=== PATIENT | male | born 1970 | race Caucasian/White ===

== ENCOUNTER → 2017-12-09 | Outpatient (CLI) | payer OTHER ==
[~2017-12-09] MED LIST: ALEVE220 MG PO; AMITRIPTYLINE H10 M3 PO; DEMEROL100 MG PO; ENDOCET 7.5-321 EACH; FLEXERIL; IBUPROFEN 600600 M1 PO; IBUPROFEN 800800 M1 PO; IMITREX 50 MG T50 MG PO; LIORESAL 10 MG10 MG PO; LOPRESSOR50 PO; MAXALT MLT ODT 55 M1 PO; MELOXICAM7.5 MG PO; METHADONE HCL 110 M1 PO; NAPROSYN500 MG; NAPROSYN500 MG PO; NORCO 10-325 T1 EACH PO; ONDANSETRON HCL4 M2 PO; OPANA ER15 M1 PO; PERCOCET 10-321 EACH PO; PREDNISONE 20 M20 M1 PO; PREVACID15 MG; ROXICODONE15 MG PO; ROXICODONE30 M1 PO; SKELAXIN 800 M800 M1 PO; VERAPAMIL ER120 MG PO; VOLTAREN GEL 1100 G2 TOP; ZOFRAN4 MG PO
--- NOTE | 2017-12-11 09:33 | PAINCON ---
[address] [address] PAIN MANAGEMENT CONSULTATION Name: PURNIMA QUEVEDO Room: [facility]#: [id number] Admission: 12/09/17 Attend Phys: Nan Martinez Discharge: Date of : 72 Report #: [id number] THIS REPORT FOR: //name// CC: Rashid Osorio DATE OF SERVICE: 12/09/2017 The patient is a very pleasant 47-year-old gentleman well known to the [facility], being treated for cervical radiculopathy, cervical spondylosis, chronic headaches, history of lumbar decompressive laminectomy requiring high-risk complex medication management. Last seen in the Pain Clinic on 10/21/2017. We had weaned down for much higher dose of opiates, he has been stable at methadone 10 mg t.i.d. with oxycodone 15 mg 2-3 a day, limit 75 tablets for 30 days for some time now. Equates to roughly 180 mEq of morphine. We realized that this is a supratherapeutic dose though it is significantly lower than prior medications, which he came to the clinic on. He was seen for a prolonged visit today from 8:10 to 8:35. Greater than 50% of this 25-minute visit was spent counseling the patient. The patient had been increasing his activity, was getting up to 40 minutes exercise on the treadmill, though was noting with this he was getting paresthesia into his thumbs, right greater than left with paresthesia actually in his arms as well. Ongoing cervical radicular symptoms started to become more problematic. He has been doing some yoga for low back pain, though this too has exacerbated some back pain. 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 Alert and oriented to person, place and time, judged to be a reasonable historian, 6 feet 4 inches, 279 pounds, BMI is modestly elevated at 34 kg/m2. Blood pressure is a little bit elevated today 159/90, pulse 82, respirations 16. Cervical range of motion is limited with positive Lhermitte's radiating to the left greater than right arm. Classically, he has right greater than left radicular symptoms. Upper extremity strength is pretty robust. The patient feels he may have a slight decrease in strength, right greater than left. Again, paresthesia into the right and left thumbs. Negative Tinel's. Deep tendon reflexes are diminished, but symmetric. Reviewed the MRI from 01/14/2017, does note large left central disk extrusion at C3-C4, left central disk at C5-C6 and bilateral neural foraminal narrowing C4-C5 and C5-C6. Rises from the chair using armrest. Diffuse tenderness across the low back, well-healed surgical scar compatible with prior back surgery at 2009, again 2013. Complicated surgery with dural leak [place] [address] PAIN MANAGEMENT CONSULTATION Name: PURNIMA QUEVEDO Room: [facility]#: [id number] Admission: 12/09/17 Attend Phys: Nan Martinez Discharge: Date of : 72 Report #: [id number] We reviewed the fact that opiate medications are being used to provide analgesia adequate to support activities of daily living, not attempting to achieve a specific pain score on the 0-10 Visual Analog Scale. The current opiate medications are providing sufficient analgesia to allow the patient to participate in activities of daily living. The patient is not exhibiting any aberrant behavior suggestive of drug diversion. The patient is not having any adverse reactions to medications. The patient is not suffering from daytime somnolence or mental acuity changes. The patient is managing opiate-induced constipation with appropriate johm-ahn-hpnpphg agents and dietary considerations. The patient was counseled on concern for caution with operating a motor vehicle while using opiate medications. A physical exam was performed and the patient's functional status was evaluated. All patients with back pain were advised against the bed rest greater than 4 days and were advised to return to normal activities. Pain score assessment was noted and the treatment plan was reviewed with the patient. All current medications, both prescribed and OTC were reviewed and reconciled on the electronic medical record. Tobacco screening was accomplished and smoking cessation was advised when indicated. BMI was noted and diet/exercise modification was recommended for all patients following outside normal parameters. I reviewed with the patient today their responsibilities to safeguard prescription medications, reviewed their responsibility to utilize medications only as prescribed by the physician. They are to seek and receive pain medications only from 1 physician group ( [facility]). They are to use 1 pharmacy and keep the clinic informed if they change pharmacies. Their responsibilities include making followup visits in a timely fashion and to avoid abrupt discontinuation of medication usage. Their responsibilities further include bringing their medications (bottles from the pharmacy with residual pills) to the visit for possible confirmation of pill counts and the patient understands it is their responsibility to submit to random drug screens to ensure both that the medications prescribed are present, and that no other controlled substances are present. All prescriptions provided today were generated electronically. We reviewed the patient's opiate consent to treat contract and signed a new one today. We try and do this annually. Buccal drug swab was accomplished today, no aberrant behavior suggestive for drug diversion, simply complying with opiate consent to treat contract. We will seek authorization for cervical epidural injection under fluoroscopy to help with acute exacerbation of cervical radicular symptoms at next visit. [facility] [address] [facility] [place] [address] PAIN MANAGEMENT CONSULTATION Name: PURNIMA QUEVEDO Room: [facility]#: [id number] Admission: 12/09/17 Attend Phys: Nan Martinez Discharge: Date of : 72 Report #: [id number] Discharged in good and stable condition after 25-minute visit, greater than 50% of time spent counseling the patient. <ELECTRONICALLY SIGNED> By: Kirby Osorio DO 12/11/17 0933 [id number] Osorio DO /nt
== END ==
LOC: M.PC 01:27
DX: M54.12 Radiculopathy, cervical region (principal); M47.892 Other spondylosis, cervical region; R51 Headache; Z98.890 Other specified postprocedural states; Z79.899 Other long term (current) drug therapy

== ENCOUNTER → 2018-01-06 | Outpatient (CLI) | payer OTHER ==
--- NOTE | 2018-01-13 07:32 | PAINCON ---
[facility] [address] [place] [address] PAIN MANAGEMENT CONSULTATION Name: SAEPURNIMA Room: [facility]#: [id number] Admission: 01/06/18 Attend Phys: Nan Martinez Discharge: Date of : 72 Report #: [id number] THIS REPORT FOR: //name// CC: Rashid Osorio The patient is a 47-year-old gentleman typically treated for cervical radiculopathy, cervical spondylosis, chronic headaches, status post lumbar decompressive laminectomy, requiring high risk complex medication management. Last seen in the pain clinic on 12/09/2017. The patient was continued on baseline medication. We sought authorization for cervical epidural injection under fluoroscopy. He returns to pain clinic today. He notes the neck pain is a little bit improved, but still has ongoing cervical radicular symptoms. He is also concerningly noting some increase in lumbar radicular symptoms with some paresthesia in his anterior thigh, subjective weakness. To his credit, he has been walking more on the treadmill in the gym. We talked about doing warmup exercises prior to this. PHYSICAL EXAMINATION: Does show a modestly antalgic gait. Vital signs stable, blood pressure 144/89, pulse 96, respirations 18. BMI modestly elevated as noted on EMR . Positive straight leg raise bilaterally. Hip flexion is modestly diminished, although lower extremity extension, flexion, dorsiflexion and plantarflexion are all symmetric. Cervical range of motion is modestly limited with positive Lhermitte's. Ongoing cervical radicular symptoms and headaches remain problematic. We reviewed the fact that opiate medications are being used to provide analgesia adequate to support activities of daily living, not attempting to achieve a specific pain score on the 0-10 Visual Analog Scale. The current opiate medications are providing sufficient analgesia to allow the patient to participate in activities of daily living. The patient is not exhibiting any aberrant behavior suggestive of drug diversion. The patient is not having any adverse reactions to medications. The patient is not suffering from daytime somnolence or mental acuity changes. The patient is managing opiate-induced constipation with appropriate wthr-ibo-vykclch agents and dietary considerations. The patient was counseled on concern for caution with operating a motor vehicle while using opiate medications. A physical exam was performed and the patient's functional status was evaluated. All patients with back pain were advised against the bed rest greater than 4 days and were advised to return to normal activities. Pain score assessment was noted and the treatment plan was reviewed with the patient. All current medications, both prescribed and OTC were reviewed and reconciled on the electronic medical record. Tobacco screening [place] [address] PAIN MANAGEMENT CONSULTATION Name: PURNIMA QUEVEDO [id number] Admission: 01/06/18 Attend Phys: Nan Martinez Discharge: Date of : 72 Report #: [id number] cessation was advised when indicated. BMI was noted and diet/exercise modification was recommended for all patients following outside normal parameters. I reviewed with the patient today their responsibilities to safeguard prescription medications, reviewed their responsibility to utilize medications only as prescribed by the physician. They are to seek and receive pain medications only from 1 physician group ( [facility]). They are to use 1 pharmacy and keep the clinic informed if they change pharmacies. Their responsibilities include making followup visits in a timely fashion and to avoid abrupt discontinuation of medication usage. Their responsibilities further include bringing their medications (bottles from the pharmacy with residual pills) to the visit for possible confirmation of pill counts and the patient understands it is their responsibility to submit to random drug screens to ensure both that the medications prescribed are present, and that no other controlled substances are present. All prescriptions provided today were generated electronically. ASSESSMENT: Symptomatic cervical radiculopathy by clinical exam and history, chronic headaches, chronic pain syndrome, neuropathic pain requiring complex medication management, lumbar radiculopathy status post decompressive laminectomy. RECOMMENDATIONS: 1. Continue methadone 10 mg t.i.d., oxycodone 15 mg b.i.d. to t.i.d., baclofen 10 mg at bedtime and amitriptyline 10 mg at bedtime. 2. Cervical epidural injection under fluoroscopy today. 3. The patient given samples of Movantik for opiate-induced constipation. 4. Follow up in 4 weeks for reevaluation. May need MRI of the lumbar spine if lumbar radicular symptoms continue problematic. ASSESSMENT: Symptomatic cervical radiculopathy. PROCEDURE: Cervical epidural injection under fluoroscopy. PROCEDURE NOTE: After written and informed consent was obtained including risk of dural puncture, spinal cord trauma, paralysis and increased pain, the patient was taken to the fluoroscopy suite and placed in the prone position, with appropriate abdominal bolstering, neck was flexed, palms under the thighs. Skin was prepped with ChloraPrep. Sterile draping was applied. Skin wheal with 1% Xylocaine was raised. A 22-gauge 3-1/2 inch epidural Tuohy needle was placed via a midline approach at the C7-T1 interspace, advanced under biplanar fluoroscopy using continuous loss of resistance. With appropriate loss of resistance at the expected depth on lateral view, the glass loss of resistance syringe was disconnected. A low volume extension tubing was connected to the needle and a 5 mL syringe. Negative aspiration for cerebrospinal fluid or blood [address] [address] PAIN MANAGEMENT CONSULTATION Name: SAEPURNIMA Room: [facility]#: [id number] Admission: 01/06/18 Attend Phys: Nan Martinez Discharge: Date of : 72 Report #: [id number] was noted. A 1 mL of Omnipaque was injected which showed spread within the epidural space on biplanar fluoroscopy. This was followed with 80 mg of triamcinolone plus 1 mL of 1.5% preservative Xylocaine. Needle was withdrawn to the interspinous ligament, 0.5 mL of Xylocaine was used to flush the needle. The needle was then completely withdrawn. The area was cleansed. Band-Aid was applied. The patient was allowed to move off the procedure table and ambulated to the recovery room, monitored for an appropriate period of time, discharged in good and stable condition. <ELECTRONICALLY SIGNED> By: Kirby Osorio DO 01/13/18 0732 [id number] Osorio DO /nt
== END | disposition home or self-care (01) ==
LOC: M.PC 01:29
DX: M54.12 Radiculopathy, cervical region (principal); M54.16 Radiculopathy, lumbar region; G89.4 Chronic pain syndrome; G44.89 Other headache syndrome; Z98.890 Other specified postprocedural states; Z79.891 Long term (current) use of opiate analgesic

== ENCOUNTER → 2018-02-03 | Outpatient (CLI) | payer OTHER ==
--- NOTE | 2018-02-04 09:41 | PAINCON ---
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 The patient came to us on much higher dose of opiates. He has been very stable on methadone 10 mg t.i.d. and oxycodone 15 mg 2 or 3 a day. We did a cervical epidural injection in the last visit, which did decrease frequency and intensity of headaches. He returns to the pain clinic today, he has lost 7 pounds to his credit, he has continued to do treadmill work daily. Notes frequency and intensity of headaches is diminished, has headaches less than 15 days a month. Does have some increasing pain in the mid right back. He does have palpable spasm in the right thoracic paravertebral muscles from about T7-T10. Lower extremity strength is preserved. We reviewed the fact that opiate medications are being used to provide analgesia adequate to support activities of daily living, not attempting to achieve a specific pain score on the 0-10 Visual Analog Scale. The current opiate medications are providing sufficient analgesia to allow the patient to participate in activities of daily living. The patient is not exhibiting any aberrant behavior suggestive of drug diversion. The patient is not having any adverse reactions to medications. The patient is not suffering from daytime somnolence or mental acuity changes. The patient is managing opiate-induced constipation with appropriate zvos-roo-uyancsi agents and dietary considerations. The patient was counseled on concern for caution with operating a motor vehicle while using opiate medications. A physical exam was performed and the patient's functional status was evaluated. All patients with back pain were advised against the bed rest greater than 4 days and were advised to return to normal activities. Pain score assessment was noted and the treatment plan was reviewed with the patient. All current medications, both prescribed and OTC were reviewed and reconciled on the electronic medical record. Tobacco screening was accomplished and smoking cessation was advised when indicated. BMI was noted and diet/exercise modification was recommended for all patients following outside normal parameters. I reviewed with the patient today their responsibilities to safeguard prescription medications, reviewed their responsibility to utilize medications only as prescribed by the physician. They are [place] [address] PAIN MANAGEMENT CONSULTATION Name: PURNIMA QUEVEDO [id number] Admission: 02/03/18 Attend Phys: Nan Martinez Discharge: Date of : 72 Report #: [id number] medications only from 1 physician group ( [facility]). They are to use 1 pharmacy and keep the clinic informed if they change pharmacies. Their responsibilities include making followup visits in a timely fashion and to avoid abrupt discontinuation of medication usage. Their responsibilities further include bringing their medications (bottles from the pharmacy with residual pills) to the visit for possible confirmation of pill counts and the patient understands it is their responsibility to submit to random drug screens to ensure both that the medications prescribed are present, and that no other controlled substances are present. All prescriptions provided today were generated electronically. 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 I talked about possible increase in pain with this though in truth the patient is getting in better shape. He has been working on core strengthening. I do not think that he will have a significant change in functional status with this. He understands he has some ongoing chronic daily pain and is okay with this. Hopefully, we will simply use idsj-hyb-hjlbaem NSAID to help with any increased pain from muscle related issues. To this end, I did provide a prescription for Voltaren gel and suggested to have his rub into the muscle spasm area in the right midback. ASSESSMENT: Symptomatic cervical radiculopathy, cervical spondylosis, chronic headaches and lumbar radiculopathy, status post decompressive laminectomy with new diagnosis of right thoracic paravertebral muscle spasm and myofascial pain. RECOMMENDATIONS: 1. Continue methadone 10 mg t.i.d., oxycodone 15 mg 2-3 a day, limit 75 tablets. We talked about trying to use a half a tablet if pain is a little less severe. 2. We will trial Voltaren gel topically. Follow up in 30 days for reevaluation. <ELECTRONICALLY SIGNED> By: Kirby Osorio DO 02/04/18 0941 [id number] Osorio DO /nt
== END ==
LOC: M.PC 01:44
DX: M47.22 Other spondylosis with radiculopathy, cervical region (principal)

== ENCOUNTER → 2018-02-24 | Outpatient (CLI) | payer OTHER ==
--- NOTE | 2018-03-01 08:02 | PAINCON ---
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 Last seen in the pain clinic 02/03/2018. Continued on methadone 10 mg t.i.d., oxycodone 15 mg 1 tablet 2-3 times a day. Again, the patient's care was taken over by myself in 09/2016. At that time, he was on fairly high dose opiates including oxycodone 30 mg up to 6 a day. We had rotated to various medications and weaned down to current opiate load. The patient notes medications are generally helpful for chronic pain including headaches and axial back pain. He notes the headaches are much less frequent than they were years ago. He had been in the ER 6-8 times a year prior to my management. His last headache requiring him to go to the ER was in the fall of 2016, now some 8 months ago. Notes having some ongoing low back pain with leg aching. To his credit, he has been increasing work on the treadmill 30-40 minutes a day with stationary bike 5-10 minutes along with some stretching. He thinks baclofen 10 mg b.i.d. is helpful, in fact he is using it a little more frequently for spasm. Notes his subjective pain score is 7 on VAS. PHYSICAL EXAMINATION: Shows 6-foot 4-inch, 270-pound gentleman, BMI is 32 kilograms per meter squared. Blood pressure 152/93, pulse 88, respirations 16. Alert and oriented to person, place and time, judged to be a reasonable historian. Cervical range of motion is relatively full. Some diffuse tenderness in the upper back, trapezius and thoracic paravertebral muscles. No discrete trigger point is noted. Lumbar flexion is modestly limited. Gait is tandem. Lower extremity strength is preserved. Straight leg raise is nominally positive on the left. ASSESSMENT: Lumbar radiculopathy status post decompressive laminectomy with some left lumbar radicular pain, chronic headaches, cervical radiculopathy, myofascial pain component requiring complex medication management. RECOMMENDATIONS: I have discussed with the patient today, we would like to continue current medication unchanged, methadone 10 mg t.i.d., oxycodone 15 mg 1 tablet 2-3 times a day, Voltaren gel topically. We will increase baclofen from 10 mg b.i.d. up to q.i.d. Discharged in good stable condition. Follow up in 1 [place] [address] PAIN MANAGEMENT CONSULTATION Name: PURNIMA QUEVEDO [id number] Admission: 02/24/18 Attend Phys: Nan Martinez Discharge: Date of : 72 Report #: [id number] Last random drug screen 12/09/2017, positive for prescribed medications including methadone and amitriptyline. Negative for oxycodone, though he does take this on a nondaily basis. We may check a random buccal swab at next visit, no aberrant behavior suggestive of drug diversion, simply complying with our opiate consent to treat contract. <ELECTRONICALLY SIGNED> By: Kirby Osorio DO 03/01/18 0802 1514 [id number] Osorio DO /nt
== END ==
LOC: M.PC 00:33
DX: M54.16 Radiculopathy, lumbar region (principal); M54.12 Radiculopathy, cervical region; M79.1 Myalgia; R51 Headache

== ENCOUNTER → 2018-03-24 | Outpatient (CLI) | payer OTHER ==
--- NOTE | 2018-03-29 08:35 | PAINCON ---
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 He had been on a very high dose opiates. We weaned down to methadone 10 mg t.i.d. with oxycodone 15 mg 1 tablet 2-3 times a day. Baclofen 10 mg up to 4 times a day as a co-analgesic and Voltaren gel topically. We progressed to perform a cervical epidural injection on 01/06/2018 with overall improvement of radicular symptoms. He returns to pain clinic today noting he is having increasing stress and headaches. Also, notes significant axial back pain with tenderness over the bilateral SI joints. He prior had a lumbar spinal surgery in 2009 and again in 2013 with incremental improvement of pain. PHYSICAL EXAMINATION: Shows a 6 feet 4 inches, 271 pound gentleman, BMI is 33 kilograms per meter squared, blood pressure is 142/82, pulse 89, respirations 16. Subjective pain score is 7 on a VAS. Cervical range of motion is modestly limited, tender in the superior cervical facets, had a headache this morning. He has had decreased activity somewhat secondary to pain. States that symptoms have been worse in the past 3 weeks, but thinks that he might be getting better from the headache standpoint, ongoing axial back pain exacerbated with standing, bending and leaning forward. Physical exam again notes upper extremity strength is preserved. Rises from chair using armrest. Diffuse tenderness over the SI joints. Well-healed surgical scar compatible with lumbar decompressive laminectomy. Lumbar flexion is limited. Lower extremity strength is preserved. Straight leg raise is negative. We reviewed the fact that opiate medications are being used to provide analgesia adequate to support activities of daily living, not attempting to achieve a specific pain score on the 0-10 Visual Analog Scale. The current opiate medications are providing sufficient analgesia to allow the patient to participate in activities of daily living. The patient is not exhibiting any aberrant behavior suggestive of drug diversion. The patient is not having any adverse reactions to medications. The patient is not suffering from daytime somnolence or mental acuity changes. The patient is managing opiate-induced constipation with appropriate nobm-rzn-cgldvcy agents and dietary considerations. The patient was counseled on concern for caution with operating a motor vehicle while using opiate medications. A physical exam was performed and the patient's functional status was evaluated. All patients with back pain were advised against the bed rest greater than 4 days and were advised to return to normal activities. Pain score assessment was noted and the treatment plan was reviewed with [place] [address] PAIN MANAGEMENT CONSULTATION Name: PURNIMA QUEVEDO [id number] Admission: 03/24/18 Attend Phys: Nan Martinez Discharge: Date of : 72 Report #: [id number] medications, both prescribed and OTC were reviewed and reconciled on the electronic medical record. Tobacco screening was accomplished and smoking cessation was advised when indicated. BMI was noted and diet/exercise modification was recommended for all patients following outside normal parameters. I reviewed with the patient today their responsibilities to safeguard prescription medications, reviewed their responsibility to utilize medications only as prescribed by the physician. They are to seek and receive pain medications only from 1 physician group ( [facility]). They are to use 1 pharmacy and keep the clinic informed if they change pharmacies. Their responsibilities include making followup visits in a timely fashion and to avoid abrupt discontinuation of medication usage. Their responsibilities further include bringing their medications (bottles from the pharmacy with residual pills) to the visit for possible confirmation of pill counts and the patient understands it is their responsibility to submit to random drug screens to ensure both that the medications prescribed are present, and that no other controlled substances are present. All prescriptions provided today were generated electronically. ASSESSMENT: Chronic headaches, cervical radiculopathy requiring complex medication management in a gentleman status post lumbar decompressive laminectomy with component of SI mediated pain. RECOMMENDATIONS: We discussed need to continue opiate wean. We elected to continue methadone 10 mg t.i.d. We will decrease oxycodone from 15 mg tablet to Percocet 10/325, limit 3 tablets a day. Continue baclofen and amitriptyline at bedtime unchanged. We will seek authorization for bilateral SI joint injections at next visit. I did discuss with the patient today that I will be leaving practice. We need to find another pain clinic physician in his network to continue managing pain concerns and medication management. Hopefully, we can find a provider in the [facility] group. <ELECTRONICALLY SIGNED> By: Kirby Osorio DO 03/29/18 0835 [id number] Osorio DO /nt
== END ==
LOC: M.PC 02:58
DX: M96.1 Postlaminectomy syndrome, not elsewhere classified (principal); G89.29 Other chronic pain; R51 Headache; M54.12 Radiculopathy, cervical region; Z79.899 Other long term (current) drug therapy

== ENCOUNTER → 2018-04-21 | Outpatient (CLI) | payer OTHER ==
--- NOTE | 2018-04-22 08:06 | PAINCON ---
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 Comorbidity notes history of lumbar decompressive laminectomy and SI mediated pain. I started treating patient on 09/2016. At that time, he was using Opana ER 15 mg b.i.d. and oxycodone 30 mg typically up to 3 a day, equivalent to roughly 225 mg morphine equivalent a day. Currently patient is utilizing methadone 10 mg t.i.d. and we decreased oxycodone 15 to Percocet 10/325 three a day. Currently taking roughly equivalent of 165 mg morphine a day. He returns to pain clinic today. We had a prolonged visit, greater than 30 minutes was spent with the patient, 50% of time was spent counseling the patient. The patient notes he has some diffuse pain in the low back, which is fairly new. He feels a pressure sensation when he stands for any period of time. Typically, he said if he would lie flat on a hard surface, pain would resolve, though this is becoming more and more problematic. Otherwise, his primary pain is in the SI area. Pain is exacerbated with pushing, lifting and bending forward. Classic SI mediated pain. Pain does NOT radiate into the legs. No signs of radiculopathy nor myelopathy noted at this time. PHYSICAL EXAMINATION: Shows 6 feet 4 inches, 270 pounds gentleman, BMI 32 kg/m2. Blood pressure 137/90, pulse 89, respirations 18. Rises from chair using armrest. Gait is generally tandem. Lumbar flexion is limited. Positive tenderness over the SI joints. Positive FLAVIO test bilaterally. Positive Gaenslen test bilaterally. Positive pelvic distraction. Lower extremity strength is generally preserved. Straight leg raise is negative at this time. Well-healed surgical scar compatible with prior decompressive laminectomy in the distant past. Subjective pain score 6 on a VAS. We reviewed the fact that opiate medications are being used to provide analgesia adequate to support activities of daily living, not attempting to achieve a specific pain score on the 0-10 Visual Analog Scale. The current opiate medications are providing sufficient analgesia [place] [address] PAIN MANAGEMENT CONSULTATION Name: PURNIMA QUEVEDO [id number] Admission: 04/21/18 Attend Phys: Nan Martinez Discharge: Date of : 72 Report #: [id number] participate in activities of daily living. The patient is not exhibiting any aberrant behavior suggestive of drug diversion. The patient is not having any adverse reactions to medications. The patient is not suffering from daytime somnolence or mental acuity changes. The patient is managing opiate-induced constipation with appropriate yfsx-rws-nigzgrh agents and dietary considerations. The patient was counseled on concern for caution with operating a motor vehicle while using opiate medications. A physical exam was performed and the patient's functional status was evaluated. All patients with back pain were advised against the bed rest greater than 4 days and were advised to return to normal activities. Pain score assessment was noted and the treatment plan was reviewed with the patient. All current medications, both prescribed and OTC were reviewed and reconciled on the electronic medical record. Tobacco screening was accomplished and smoking cessation was advised when indicated. BMI was noted and diet/exercise modification was recommended for all patients following outside normal parameters. I reviewed with the patient today their responsibilities to safeguard prescription medications, reviewed their responsibility to utilize medications only as prescribed by the physician. They are to seek and receive pain medications only from 1 physician group ( [facility]). They are to use 1 pharmacy and keep the clinic informed if they change pharmacies. Their responsibilities include making followup visits in a timely fashion and to avoid abrupt discontinuation of medication usage. Their responsibilities further include bringing their medications (bottles from the pharmacy with residual pills) to the visit for possible confirmation of pill counts and the patient understands it is their responsibility to submit to random drug screens to ensure both that the medications prescribed are present, and that no other controlled substances are present. All prescriptions provided today were generated electronically. ASSESSMENT: Chronic axial back pain, SI mediated by clinical exam, correlated with history and provocative testing. No radicular component noted at this time. The patient has had pain for greater than 6 weeks. He has failed conservative therapy including nonsteroidal antiinflammatory agents, oral opiate analgesics, muscle relaxants and physical therapy. RECOMMENDATION: 1. We will seek authorization for bilateral SI joint injection under fluoroscopy at next visit. 2. Continue current narcotic medication unchanged including methadone 10 mg t.i.d. with attempt to try and decrease to one half tablet at noon. Continue Percocet 10/325 three a day. We will have patient hold baclofen for 10 days and rotate metaxalone 800 mg t.i.d., dispense 30 tablets. 3. We will see the patient back in one week ostensibly for bilateral SI joint [facility] [address] [place] [address] PAIN MANAGEMENT CONSULTATION Name: PURNIMA QUEVEDO Room: [facility]#: [id number] Admission: 04/21/18 Attend Phys: Nan Martinez Discharge: Date of : 72 Report #: [id number] injection under fluoroscopy. Discharged in good and stable condition after prolonged visit. Greater than 50% of time spent counseling the patient, reviewing therapeutic options, discussing risks of supratherapeutic opiate analgesics and need to move forward with interventional therapy. <ELECTRONICALLY SIGNED> By: Kirby Osorio DO 04/22/18 0806 1526 [id number] Osorio DO /nt
== END ==
LOC: M.PC 04:01
DX: M54.5 Low back pain (principal); G89.29 Other chronic pain; Z79.899 Other long term (current) drug therapy

== ENCOUNTER → 2018-05-19 | Outpatient (CLI) | payer OTHER ==
--- NOTE | 2018-05-20 07:27 | PAINCON ---
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 Started treating the patient in 09/2016. He had been on high dose opiate at that time, Opana ER 15 mg b.i.d. and oxycodone 30 mg 3 a day equating to roughly 225 mg of morphine. We had rotated to methadone and have weaned dramatically. He is down to methadone 10 mg t.i.d., Percocet 10/325 t.i.d. At last visit, he is having ongoing axial back pain, determined to be SI mediated, exacerbated with exercise. We talked about proceeding with SI joint injection and got authorization for same. Returns to Pain Clinic today noting pain continues to be problematic 7 on a VAS. Pain is across the low back. Positive FLAVIO test, exacerbated with bending forward. Radiates into the buttocks and legs, not below the knees. Headaches are actually better controlled with current medication including verapamil 80 mg t.i.d. He does think that the last opiate wean, from oxycodone 15 mg to Percocet 10/325 has been efficacious. He was surprised that the acetaminophen was helpful. I assured him that it is a good analgesic, simply a nonnarcotic. Feels the Skelaxin has been helpful for muscle relaxation better than the baclofen. Does continue with amitriptyline at bedtime. His migraine headaches are significantly improved overall. We reviewed the fact that opiate medications are being used to provide analgesia adequate to support activities of daily living, not attempting to achieve a specific pain score on the 0-10 Visual Analog Scale. The current opiate medications are providing sufficient analgesia to allow the patient to participate in activities of daily living. The patient is not exhibiting any aberrant behavior suggestive of drug diversion. The patient is not having any adverse reactions to medications. The patient is not suffering from daytime somnolence or mental acuity changes. The patient is managing opiate-induced constipation with appropriate sbca-avy-ntaycbl agents and dietary considerations. The patient was counseled on concern for caution with operating a motor vehicle while [place] [address] PAIN MANAGEMENT CONSULTATION Name: PURNIMA QUEVEDO [id number] Admission: 05/19/18 Attend Phys: Nan Martinez Discharge: Date of : 72 Report #: [id number] A physical exam was performed and the patient's functional status was evaluated. All patients with back pain were advised against the bed rest greater than 4 days and were advised to return to normal activities. Pain score assessment was noted and the treatment plan was reviewed with the patient. All current medications, both prescribed and OTC were reviewed and reconciled on the electronic medical record. Tobacco screening was accomplished and smoking cessation was advised when indicated. BMI was noted and diet/exercise modification was recommended for all patients following outside normal parameters. I reviewed with the patient today their responsibilities to safeguard prescription medications, reviewed their responsibility to utilize medications only as prescribed by the physician. They are to seek and receive pain medications only from 1 physician group ( [facility]). They are to use 1 pharmacy and keep the clinic informed if they change pharmacies. Their responsibilities include making followup visits in a timely fashion and to avoid abrupt discontinuation of medication usage. Their responsibilities further include bringing their medications (bottles from the pharmacy with residual pills) to the visit for possible confirmation of pill counts and the patient understands it is their responsibility to submit to random drug screens to ensure both that the medications prescribed are present, and that no other controlled substances are present. All prescriptions provided today were generated electronically. PHYSICAL EXAMINATION: Otherwise unchanged, 6 feet 4 inches, 268-pound gentleman, BMI is 32.7 kg/m2. Blood pressure /84, pulse 88, respirations 16. Has little photophobia. Cervical range of motion is modestly limited. Diffuse tenderness in the splenius capitis and trapezius. No discrete trigger points are noted. Very tender over the SI joints. Limited range of motion with flexion. Positive FLAVIO test. The lower extremity strength is preserved. Well-healed surgical scar compatible with prior lumbar decompressive laminectomy. ASSESSMENT: Symptomatic cervical radiculopathy, chronic migraines, requiring complex medication management; history of lumbar decompressive laminectomy. RECOMMENDATION: Continue methadone 10 mg t.i.d., Percocet 10/325 one tablet 3 times a day. We will continue Skelaxin 800 mg t.i.d. as needed for spasm. I have taken the liberty of writing for 2 months of current medication. Released today and 4 weeks. We will plan on moving forward with bilateral SI joint injections at next visit [facility] [address] [place] [address] PAIN MANAGEMENT CONSULTATION Name: PURNIMA QUEVEDO Room: [facility]#: [id number] Admission: 05/19/18 Attend Phys: Nan Martinez Discharge: Date of : 72 Report #: [id number] for significant SI mediated pain. We will use the "window" of improvement following the SI joint injection for ongoing core stability strength training. <ELECTRONICALLY SIGNED> By: Kirby Osorio DO 05/20/18 0727 1411 [id number] Osorio DO /nt
== END ==
LOC: M.PC 04:58
DX: M54.12 Radiculopathy, cervical region (principal); G43.909 Migraine, unspecified, not intractable, without status migrainosus; Z79.899 Other long term (current) drug therapy

== ENCOUNTER → 2018-06-02 | Outpatient (CLI) | payer OTHER ==
--- NOTE | 2018-06-03 07:04 | PAINCON ---
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 On 05/19/2018, we renewed the patient's baseline medication including methadone 10 mg t.i.d., Percocet 10/325 t.i.d., Skelaxin 800 mg t.i.d. (He came to my service on much higher doses of short acting oxycodone; up to six 30 mg tabs/day equating to roughly 270 mg MS equivalants/day. he is down to rougly 165 mg/eq/day of MS ) We sought authorization for bilateral SI joint injections. Referred the patient to physical therapy for core stabilization. The patient returns to the pain clinic today noting axial back pain is getting more problematic, interfering with function. To his credit, he has started doing core stabilization exercises. Rates his subjective pain score 7 on a VAS. Pain is across the low back, buttock, really not down into his legs. He has been walking on the treadmill with some improvement. ASSESSMENT: Sacroiliac mediated pain by clinical exam and history. PROCEDURE: Bilateral SI joint injection under fluoroscopy. PROCEDURE NOTE: After written and informed consent was obtained including risk of infection, nerve trauma, increased pain and weakness, the patient wishes to proceed. The patient was taken to the fluoroscopy suite, placed in the prone position. The sacroiliac joint was visualized using the C-arm, turned in an oblique fashion to align the joint. The skin overlying the area was cleansed with ChloraPrep. Skin wheal with Xylocaine was raised. A 22-gauge spinal needle was inserted into the inferior aspect of the joint. A low volume extension tubing was then attached to the needle after the stylet was removed. Negative aspiration was accomplished. A 1 mL of Omnipaque was injected which showed spread within the SI joint. 40 mg triamcinolone plus 2 mL of 0.5% preservative-free bupivacaine was injected into the joint. Needle was removed. Attention was then turned to the contralateral joint which was treated in an identical fashion. After both needles were removed the prep was washed off. Two Band-Aids were applied over the puncture sites. The patient was allowed to ambulate to the recovery room, monitored for an appropriate period of time, discharged in [place] [address] PAIN MANAGEMENT CONSULTATION Name: PURNIMA QUEVEDO Room: [facility]#: [id number] Admission: 06/02/18 Attend Phys: Nan Martinez Discharge: Date of : 72 Report #: [id number] The patient is doing well on current narcotic medications. I have taken the liberty of writing for a 4-week release prescription for his methadone and Percocet. Follow up in 2 months for medication renewal with Dr. Gualberto Medina. Otherwise, continue core stabilization exercises and followup simply as needed. <ELECTRONICALLY SIGNED> By: Kirby Osorio DO 06/03/18 0704 1347 [id number] Osorio DO /nt
== END | disposition home or self-care (01) ==
LOC: M.PC 04-07 08:10
DX: M53.3 Sacrococcygeal disorders, not elsewhere classified (principal); Z98.890 Other specified postprocedural states; Z79.891 Long term (current) use of opiate analgesic; Z79.899 Other long term (current) drug therapy

== ENCOUNTER → 2018-07-13 | Outpatient (CLI) | payer OTHER ==
--- NOTE | 2018-07-21 16:43 | PAINCON ---
[address] [address] PAIN MANAGEMENT CONSULTATION Name: PURNIMA QUEVEDO Room: [facility].#: [id number] Admission: 07/13/18 Attend Phys: Gill Medina MD Discharge: Date of : 72 Report #: [id number] THIS REPORT FOR: //name// CC: Rashid Medina DATE OF SERVICE: 07/13/2018 CHIEF COMPLAINT: History of cervical radicular pain and history of back pain. FOLLOWUP HISTORY: The patient is a 48-year-old gentleman who has been followed in the pain clinic by Dr. Osorio. This is my first time visiting with the patient. He has history of cervical radicular pain as well as cervical radiculopathy. He is a [employer] [place] [employer]. He finds that treatment with his current medication of methadone and Percocet are helpful. He note that he drove to [place] this weekend, note some increased pain and discomfort. He has been trying to increase his level of activity. He sometimes works out on his treadmill. He sometimes has some difficulty getting in and out of his car. Sometimes stepping down onto the pavement, can ____ his back and exacerbate his pain and discomfort. He has been on a weight loss program. He has decreased his weight from 280 to 260. He has had back surgeries on two other occasions. Also, has some pain and discomfort in his neck, probably this is doing reasonably well at this juncture. Finds that his medications of methadone and Percocet continued to be efficacious. He rates his pain as 4/10 at this juncture. ALLERGIES: No known drug allergies. CURRENT MEDICATIONS: Amitriptyline 10 mg at bedtime, ibuprofen 800 mg, Skelaxin 800 mg t.i.d., methadone 10 mg t.i.d., oxycodone 10/325 t.i.d., verapamil ER 120 mg t.i.d. PAST MEDICAL HISTORY: Three level decompressive laminectomy, L4-L5 diskectomy, chronic headaches, and GERD. PAST SURGICAL HISTORY: Two low back surgeries in 2009, three level decompressive laminectomy surgery, L4-L5 diskectomy repair due to tear, lumbar drain. 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 REVIEW OF SYSTEMS: Fatigue, weakness, headaches, wears glasses, shortness of breath, recurring headaches, numbness and tingling sensation, tremors. LABORATORY DATA: No new laboratory values are available at the [place] [address] PAIN MANAGEMENT CONSULTATION Name: PURNIMA QUEVEDO Room: [facility]#: [id number] Admission: 07/13/18 Attend Phys: Gill Medina MD Discharge: Date of : 72 Report #: [id number] PAIN CLINIC ASSESSMENT: 1. The patient does have some arthritic change in his lower back. 2. Height 6 feet 4 inches, weight 267 pounds, BMI is 32.5. 3. Vital signs: Blood pressure 140/99, heart rate 85, respiratory rate 16, room air saturation 95%, temperature 97.3. 4. Pain intensity is 4/10. 5. Fall risk. The patient has not fallen in the last 3 months. 6. Blood thinner. The patient is not on a blood thinning medication. 7. Hypertension. The patient is being treated for hypertension. 8. Opioid greater than 6 weeks. The patient gets his medications from the pain clinic. 9. Risk assessment tool. 10. Functional assessment tool. 11. Recreational drug use. The patient denies use of recreational drugs. 12. Tobacco: The patient denies use of tobacco. 13. Alcohol: The patient denies use of alcohol. PHYSICAL EXAMINATION: GENERAL: The patient is a well-developed, well-nourished white male. Appears his stated age. He is alert and oriented x 3. Affect is appropriate. Speech is fluent. HEENT: Normocephalic, atraumatic. Extraocular muscles intact. Sclerae nonicteric. Hearing is within normal limits. Mucous membranes are moist. NECK: With good range of motion. Upper extremity muscle strength to be 5/5 for the major muscle groups. HEART: Regular rate. S1, S2. LUNGS: Clear to auscultation. ABDOMEN: Nontender. EXTREMITIES: Lower extremity; palpation without significant scoliosis, kyphosis or lordosis. His pain and discomfort, which radiates down to his left leg into the mid portion of his thigh on the left side. Notes some increased pain secondary to rising from [place] to [place]. IMPRESSION: 1. Lumbar radiculopathy. 2. Cervical radiculopathy. 3. Three level decompressive laminectomy. 4. L4-L5 diskectomy. 5. Chronic headaches. 6. Gastroesophageal reflux disease. RECOMMENDATIONS: We discussed treatment options with the patient. We will continue with his current medical regimen of methadone and oxycodone. The patient states that the Skelaxin is helpful. He notes sometimes makes him sleepy takes it later on at night. [place] [address] PAIN MANAGEMENT CONSULTATION Name: PURNIMA QUEVEDO Room: [facility]#: [id number] Admission: 07/13/18 Attend Phys: Gill Medina MD Discharge: Date of : 72 Report #: [id number] medications. He has had a SI joint injection. He does note that his pain that continues to wax and wane. In the future, we may consider another epidural steroid injection when his pain becomes more problematic. We would like to thank you for letting us participate in his care. We hope he continues to improve. <ELECTRONICALLY SIGNED> By: Gill Medina MD 07/21/18 1643 [id number]. Gualberto Medina MD /nt
== END ==
LOC: M.PC 04:45
DX: M54.12 Radiculopathy, cervical region (principal); M54.16 Radiculopathy, lumbar region; R51 Headache; K21.9 Gastro-esophageal reflux disease without esophagitis

== ENCOUNTER → 2018-09-14 | Outpatient (CLI) | payer OTHER ==
--- NOTE | 2018-10-06 16:20 | PAINCON ---
[address] [address] PAIN MANAGEMENT CONSULTATION Name: PURNIMA QUEVEDO Room: [facility].#: [id number] Admission: 09/14/18 Attend Phys: Gill Medina MD Discharge: Date of : 72 Report #: [id number] THIS REPORT FOR: //name// CC: Rashid Medina DATE OF SERVICE: 09/14/2018 CHIEF COMPLAINT: Neck and low back pain. FOLLOWUP HISTORY: The patient is a 48-year-old gentleman who has been followed in the pain clinic. He has history of cervical radiculopathy and has experienced pain and discomfort because of lumbar radiculopathy. 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 He finds that his use of methadone and Percocet are helpful. Overall, things are going reasonably well. He continues to work out. Sometimes notes some difficulty getting in and out of his car because of this discomfort. He has been working to try and decrease his weight. He has had back surgeries on 2 occasions. Rates pain as a 6/10. Notes that now that the weather has changed from the 60s to the 20s, he has noted an exacerbation of his pain and discomfort. Has experiencing some pain and discomfort at the base of his neck. He has returned today and would like to continue with his medications. They have not caused any problems with his mentation. He is able to think clearly. 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 ALLERGIES: No known drug allergies. CURRENT MEDICATIONS: Amitriptyline 10 mg at bedtime, ibuprofen 800 mg, Skelaxin 800 mg t.i.d., methadone 10 mg t.i.d., oxycodone 10 mg/325 t.i.d., verapamil ER 120 mg t.i.d. PAIN CLINIC ASSESSMENT/PQRS: 1. The patient does have some arthritic changes in his lower back. Has some problems with therapies. 2. He is not being treated for rheumatoid arthritis. 3. Height 6 feet 4 inches, weight 273 pounds, BMI is 33.4. 4. Vital Signs: Blood pressure 159/86, heart rate 97, respiratory rate 16, room air saturation 93%. 5. Pain score 6/10. 6. Fall history: The patient has not fallen in the last 3 months. 7. Blood thinner. The patient is not on a blood thinning medication. 8. Hypertension. The patient is not being treated for hypertension. 9. Opioid greater than 6 weeks. The patient receives his medications from [facility], the pain clinic. 10. Risk assessment tool, low for opioid use. 11. Functional [place] [address] PAIN MANAGEMENT CONSULTATION Name: PURNIMA QUEVEDO Room: [facility]#: [id number] Admission: 09/14/18 Attend Phys: Gill Medina MD Discharge: Date of : 72 Report #: [id number] 12. Recreational drug use. The patient denies use of recreational drugs. 13. Tobacco: The patient denies use of tobacco. 14. Alcohol: The patient denies use of alcoholic beverages. PHYSICAL EXAMINATION: GENERAL: The patient is a well-developed, well-nourished white male. Appears his stated age. He is alert and oriented x 3. His affect is appropriate. Speech is fluent. HEENT: Normocephalic, atraumatic. Extraocular eye muscles are intact. Sclerae nonicteric. Mucous membranes are moist. NECK: With good range of motion. HEART: Regular rate. S1, S2. LUNGS: Clear to auscultation. ABDOMEN: Nontender. Bowel sounds are present. EXTREMITIES: Upper extremity muscle strength 5/5. MUSCULOSKELETAL: Without significant scoliosis, kyphosis or lordosis. The patient notes pain that radiates down to his left leg into the mid portion of his thigh on the left side. Notes some increased pain secondary to increase in activities and changes of the weather. IMPRESSION: 1. Lumbar radiculopathy. 2. Cervical radiculopathy. 3. Three-level decompressive laminectomy. 4. L4-L5 diskectomy. 5. Chronic headaches. 6. Gastroesophageal reflux disease. RECOMMENDATIONS: We discussed treatment options with the patient. At this juncture, he feels his medications are working reasonably well. He would like to continue their use. There is no clouding of his sensorium. He is able to perform his job without encumbrances. He feels that the Skelaxin medication is helpful. Methadone is beneficial and the Percocet are helpful as well. He notes that these medications all work together to able him to engage him near normal activity level. We would like to thank you for letting us participate in his care. A prescription for all these medications have been rewritten. He will call us if he has any concerns. <ELECTRONICALLY SIGNED> By: Gill Medina MD 10/06/18 1620 [id number]. Gualberto Medina MD /nt
== END ==
LOC: M.PC 09-07 08:10
DX: M54.16 Radiculopathy, lumbar region (principal); M54.12 Radiculopathy, cervical region; K21.9 Gastro-esophageal reflux disease without esophagitis; M96.1 Postlaminectomy syndrome, not elsewhere classified; M51.06 Intervertebral disc disorders with myelopathy, lumbar region; R51 Headache

== ENCOUNTER → 2018-10-26 | Outpatient (CLI) | payer OTHER ==
[~2018-10-26] MED LIST changes: +DOXEPIN 10 MG C10 MG PO; +MEDROLDOSEPACK PO; +MOBIC15 MG PO
--- NOTE | ~2018-10-26 | PAINCON ---
[address] [address] PAIN MANAGEMENT CONSULTATION Name: SAEPURNIMA Room: [facility]#: [id number] Admission: 10/26/18 Attend Phys: Gill Medina MD Discharge: Date of : 72 Report #: [id number] THIS REPORT FOR: //name// CC: Rashid Medina DATE OF SERVICE: 10/26/2018 FOLLOWUP COMPLAINT: I have noticed more pain in the neck as well as more pain in the arms and down into the hands, worse than before. FOLLOWUP HISTORY: The patient is a 48-year-old gentleman who has been followed in the pain clinic because of history of cervical radiculopathy. He feels that his pain is increasing. He has noted some worsening of pain as well as some lumbar discomfort. He has tried a Medrol Dosepak in the past and noted some benefit from this. He has had pain in his arms and hands, which he describes as worse than before. He has been having an increased frequency of headaches. The pain has been so problematic. It does cause some nausea and vomiting. He has noticed loss of appetite as a result. He has difficulty sleeping. He has to limit his activities because of his pain overall. Finds that the Percocet, methadone, and Skelaxin are beneficial. Overall, he feels that things are about 20-30% improved with his current medical regimen. 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 He is able to think clearly without problems from his medications. He has had back surgery on 2 occasions. Pain has increased over the last few weeks. Today his temperature is in the 30s. He has noticed a worsening of pain because of the onset of cold weather. Has some pain at the base of his neck. ALLERGIES: No known drug allergies. CURRENT MEDICATIONS: Amitriptyline was used in the past, he is not taking at this juncture. Ibuprofen 800 mg, Skelaxin 800 mg t.i.d., methadone 10 mg t.i.d., oxycodone 10/325 one p.o. t.i.d., and verapamil ER 120 mg t.i.d. PAIN CLINIC ASSESSMENT AND PQRS: 1. The patient does have some arthritic changes in his low back area. He has had surgery in the past. He is not be being treated for rheumatoid arthritis. 2. Height 6 feet 4 inches, weight 269 pounds, BMI is 32. 3. Vitals, blood pressure 147/91, heart rate 75, respiratory rate 16, room air saturation 95%, and temperature 97.7. 4. Pain intensity 8/10. 5. Fall history: The patient has not fallen in the last 3 months. 6. Blood thinner. The patient is not on a blood thinning medication. 7. Hypertension. The patient is not being treated for hypertension. 8. Opioids greater than 6 weeks. The patient receives his medication from [facility] [address] PAIN MANAGEMENT CONSULTATION Name: PURNIMA QUEVEDO Room: [facility]#: [id number] Admission: 10/26/18 Attend Phys: Gill Medina MD Discharge: Date of : 72 Report #: [id number] 9. Risk assessment tool, low for opioid use. 10. Functional assessment tool. 11. Recreational drug use. The patient denies use of recreational drugs. 12. Tobacco: The patient denies use of tobacco. 13. Alcohol: The patient denies use of alcoholic beverages. PHYSICAL EXAMINATION: GENERAL: The patient is well-developed, well-nourished white male. Appears his stated age. He is alert and oriented x 3. His affect is appropriate. Speech is fluent. HEENT: Normocephalic, atraumatic. Extraocular eye muscles intact. Sclerae nonicteric. Mucous membranes are moist. NECK: Reasonable range of motion. The patient is having pain and discomfort, which radiates down his arms, into his hands bilaterally. This is increased as compared to that in the past. HEART: Regular rate. S1, S2. LUNGS: Clear to auscultation. ABDOMEN: Bowel sounds present. Abdomen nontender. EXTREMITIES: Upper extremity muscle strength is judged to be 5-/5 for the upper extremity. MUSCULOSKELETAL: Without significant scoliosis, kyphosis, or lordosis. The patient notes some pain radiating down into his left leg in the mid portion of his thigh on the left side. He notes some increased pain secondary to increase activities as well as changes in the weather. IMPRESSION: 1. Cervical radiculopathy, which is more problematic at this juncture. 2. Lumbar radiculopathy. 3. Three-level decompressive laminectomy. 4. L4-L5 diskectomy. 5. Chronic headaches. 6. Gastroesophageal reflux disease. RECOMMENDATIONS: We discussed treatment options with the patient. The patient stopped taking the amitriptyline. He felt like this medication kept him a little bit sedate the following day. We will try doxepin, which is a tricyclic antidepressants medication. This medication can have some of the same benefits of amitriptyline with less of sedating effects. A script for ____ 10 mg 1 p.o. at bedtime has been written. The patient will also try Medrol Dosepak in the interim to see if this will provide him some pain benefit. He will try a nonsteroidal anti-inflammatory medication. He is not on a nonsteroidal anti-inflammatory medication on a consistent basis. We discussed the practical reasoning for an improvement in pain with the production of prostaglandins, which are ameliorated with use of medications such as Mobic. A script for Mobic 1 tablet p.o. daily has been written. The patient will also continue with Skelaxin and methadone and his Percocet as needed. [place] [address] PAIN MANAGEMENT CONSULTATION Name: PURNIMA QUEVEDO Room: [facility]#: [id number] Admission: 10/26/18 Attend Phys: Gill Medina MD Discharge: Date of : 72 Report #: [id number] has been noted. We recommend that the patient undergo a reevaluation of his neck with MRI at this juncture. Again, because of the change in the character of his pain, I think a new image of his neck is warranted. The patient has been given a script for that procedure. He will follow up in the future. We would like to thank you for letting us participate in his care. We hope he continues to improve. By: [id number]. Gualberto Medina MD /nt
== END ==
LOC: M.PC 05:22
DX: M54.12 Radiculopathy, cervical region (principal); M54.16 Radiculopathy, lumbar region; R51 Headache; G89.29 Other chronic pain; K21.9 Gastro-esophageal reflux disease without esophagitis; M51.06 Intervertebral disc disorders with myelopathy, lumbar region; M96.1 Postlaminectomy syndrome, not elsewhere classified

== ENCOUNTER → 2018-11-09 | Outpatient (CLI) | payer OTHER ==
--- NOTE | ~2018-11-09 | PAINCON ---
[address] [address] PAIN MANAGEMENT CONSULTATION Name: PURNIMA QUEVEDO Room: [facility].#: [id number] Admission: 11/09/18 Attend Phys: Gill Medina MD Discharge: Date of : 72 Report #: [id number] THIS REPORT FOR: //name// CC: Rashid Medina DATE OF SERVICE: 11/09/2018 FOLLOWUP COMPLAINT: Here for medication renewal. HISTORY: The patient is a 48-year-old gentleman who has been followed in the pain clinic and has returned today for renewal of his medications. He continues to have some pain and discomfort in his neck. He is having pain that radiates down into his arms as well as into her left shoulder. He has had a headache in the past, which seems to be getting a little bit better. He associates this with worsening of his pain. Rates his pain as a 7/10 at this juncture. We would like to continue with methadone and has not caused any problems with his mentation helps with his pain. He also feels that Mobic, Percocet and Skelaxin are helpful as well. Pain is worse with changes in temperature as well as depends on his level of activity. Also, has some back pain as you recall, he has had surgery on two occasions in the low back area. ALLERGIES: No known drug allergies. CURRENT MEDICATIONS: 1. Amitriptyline was used in the past, not taking at this juncture. 2. Ibuprofen 800 mg. 3. Skelaxin 800 mg t.i.d. 4. Methadone 10 mg t.i.d. 5. Oxycodone 10/325 one p.o. t.i.d. 6. Verapamil 120 mg. 7. The patient was taking doxepin. He is not taking that medication any longer as well. PAIN CLINIC ASSESSMENT: 1. The patient has pain and discomfort and some arthritic pain. He is not being treated for rheumatoid arthritis. 2. Height 6 feet 4 inches, weight 271 pounds, BMI 33. 3. VITAL SIGNS: Blood pressure 152/98, heart rate 78, respiratory rate 18, room air saturation 97%. 4. Temperature 97.7. 5. Pain intensity 10. 6. Fall history: The patient has not fallen in the last 3 months. 7. Blood thinner. The patient is not on a blood thinning medication. 8. Hypertension. The patient is not being [place] [address] PAIN MANAGEMENT CONSULTATION Name: PURNIMA QUEVEDO Room: [facility]#: [id number] Admission: 11/09/18 Attend Phys: Gill Medina MD Discharge: Date of : 72 Report #: [id number] 9. Opioids greater than 6 weeks. The patient receives medication [facility]. 10. Risk assessment too is low for opioid use. 11. Functional assessment tool. 12. Recreational drug use. The patient denies use of recreational drugs. 13. Tobacco: The patient denies use of tobacco. 14. Alcohol. The patient denies use of alcoholic beverages. PHYSICAL EXAMINATION: GENERAL: The patient is well-developed, well-nourished white male. Appears his stated age. He is alert and oriented x 3. Affect is appropriate. Speech is fluent. HEENT: Normocephalic, atraumatic. Extraocular eye muscles intact. Sclerae nonicteric. Mucous membranes are moist. NECK: Reasonable range of motion. Having some discomfort in the area with some pain that radiates down into his arms into his hands bilaterally. Notes some increased pain. HEART: Regular rate. S1, S2. LUNGS: Clear to auscultation without rhonchi or rales. ABDOMEN: Nontender. Bowel sounds present. EXTREMITIES: Upper extremity muscle strength judged to be 5/5 for the major muscle groups in the upper extremity. MUSCULOSKELETAL: Without scoliosis, kyphosis or lordosis. The patient has some pain in the left leg and has a history of lumbar radicular pain. He had two surgeries in the past. IMPRESSION: 1. Cervical radiculopathy, which is more problematic at this juncture. 2. Lumbar radiculopathy. 3. Level decompressive laminectomy in the past. 4. L4-L5 diskectomy. 5. Chronic headaches. 6. Gastroesophageal reflux disease. RECOMMENDATION: We discussed treatment options with the patient. We will continue with his current medications. A script for his medications has been rewritten. A script for meloxicam 15 mg, oxycodone 10 mg 1 p.o. t.i.d. have been written. The patient will also continue with methadone 10 mg 1 p.o. t.i.d. to help quell the pain. He will call us if he has any problems. He will also continue with Skelaxin 800 mg p.r.n. or 800 mg t.i.d. We would like to thank you for letting us participate in his care. Hope he continues to improve. The patient felt that the doxepin medication, wiped him [facility] [address] [place] [address] PAIN MANAGEMENT CONSULTATION Name: PURNIMA QUEVEDO Room: [facility]#: [id number] Admission: 11/09/18 Attend Phys: Gill Medina MD Discharge: Date of : 72 Report #: [id number] out. He is to see a neurologist in about 2 weeks. Continues to have some daily GI upset. By: [id number]. Gualberto Medina MD /nt
== END ==
LOC: M.PC 04:41
DX: M54.12 Radiculopathy, cervical region (principal); M54.16 Radiculopathy, lumbar region; R51 Headache; M96.1 Postlaminectomy syndrome, not elsewhere classified; K21.9 Gastro-esophageal reflux disease without esophagitis; Z79.899 Other long term (current) drug therapy

== ENCOUNTER → 2019-03-10 | Outpatient (CLI) | payer OTHER ==
--- NOTE | ~2019-03-10 | PAINCON ---
[address] [address] PAIN MANAGEMENT CONSULTATION Name: SAEPURNIMA Izaguirre Room: [facility]#: [id number] Admission: 03/10/19 Attend Phys: Gill Medina MD Discharge: Date of : 72 Report #: [id number] THIS REPORT FOR: //name// CC: Rashid Medina DATE OF SERVICE: 03/10/2019 CHIEF COMPLAINT: Here for medications. HISTORY: The patient is a 48-year-old gentleman who has been seen in the Pain Clinic. 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 He has had a tumultuous time in the interim. He states his son is getting better. He has returned to the Pain Clinic for renewal of his medications. The patient is not having any problems with the medications. He states that he is able to think clearly. It does not alter his sensorium at all. He is able to make critical judgments without problem. ALLERGIES: No known drug allergies. CURRENT MEDICATIONS: Amitriptyline has been used in the past, Ibuprofen 800 mg, Skelaxin 800 mg t.i.d., methadone 10 mg t.i.d., oxycodone 10/325 one p.o. t.i.d., verapamil 120 mg, has used doxepin in the past, is not taking it at this juncture. PAIN CLINIC ASSESSMENT/PQRS: 1. The patient has somewhat arthritic pain. He is not being treated for rheumatoid arthritis. 2. 6 feet 4 inches, weight 257 pounds, BMI is 31.3. 3. Vital signs: Blood pressure 162/116, second 161/105, heart rate 65, respiratory rate 16, room air saturation 97%, temperature 97.7. Pain intensity 6/10. 4. Fall history. The patient has not fallen in the last 3 months. 5. Blood thinner. The patient is not on a blood thinning medication. 6. Hypertension. The patient is not being treated for hypertension. 7. Opioids greater than 6 weeks. The [facility]. 8. Risk assessment tool, low for opioid use. 9. Functional assessment tool. 10. Recreational drug use. The patient denies use of recreational drugs. 11. Tobacco: The patient denies use of tobacco. 12. Alcohol: The patient denies use of alcoholic beverages. PHYSICAL EXAMINATION: GENERAL: The patient is a well-developed, well-nourished white male. Appears his stated age. He is alert, oriented x 3. [place] [address] PAIN MANAGEMENT CONSULTATION Name: PURNIMA QUEVEDO Room: [facility]#: [id number] Admission: 03/10/19 Attend Phys: Gill Medina MD Discharge: Date of : 72 Report #: [id number] is fluent. HEENT: Normocephalic, atraumatic. Extraocular eye muscles intact. Sclerae nonicteric. Mucous membranes moist. NECK: Without adenopathy. HEART: Regular rate. S1, S2. ABDOMEN: Nontender, bowel sounds present. EXTREMITIES: Upper extremity muscle strength 5/5 for the major muscle groups in the upper extremity. The patient is without scoliosis, kyphosis or lordosis. Has some pain in his left leg as well as history of lumbar radiculopathy. He has had 2 back surgeries in the past. IMPRESSION: 1. Cervical radiculopathy, which is more problematic at this juncture. 2. Lumbar radiculopathy. 3. Decompressive lumbar laminectomy in the past. 4. L4-L5 diskectomy. 5. Chronic headaches. 6. Gastroesophageal reflux. RECOMMENDATIONS: We discussed treatments with the patient. At this juncture, he feels medications are helpful. He is not having any problems with thinking clearly. He would like to continue with his medications. He is happy that his son has returned home. Hopefully, his son returned to school ____ this year because of the traumatic brain injury. We would like to thank you for letting us participate in his care. A script for meloxicam 15 mg 1 p.o. daily, Skelaxin 800 mg 1 p.o. t.i.d., oxycodone 10/325 one p.o. t.i.d. as well as methadone 10 mg 1 p.o. t.i.d. have been written. We would like to thank you for letting us participate in his care. We hope he continues to improve. By: [id number] [id number]. Gualberto Medina MD /nt
== END ==
LOC: M.PC 01-04 08:10
DX: M54.12 Radiculopathy, cervical region (principal); M54.16 Radiculopathy, lumbar region; K21.9 Gastro-esophageal reflux disease without esophagitis; R51 Headache; Z98.890 Other specified postprocedural states; Z79.899 Other long term (current) drug therapy; Z79.891 Long term (current) use of opiate analgesic

== ENCOUNTER → 2019-04-28 | Outpatient (CLI) | payer OTHER ==
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
== END ==
LOC: M.PC 05:32
DX: M54.12 Radiculopathy, cervical region (principal); M54.16 Radiculopathy, lumbar region; R51 Headache; K21.9 Gastro-esophageal reflux disease without esophagitis; Z79.899 Other long term (current) drug therapy

== ENCOUNTER → 2019-06-30 | Outpatient (CLI) | payer OTHER ==
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
== END ==
LOC: M.PC 05:13
DX: M54.2 Cervicalgia (principal); I10 Essential (primary) hypertension; Z79.899 Other long term (current) drug therapy; Z79.810 Long term (current) use of selective estrogen receptor modulators (SERMs); Z79.891 Long term (current) use of opiate analgesic

== ENCOUNTER → 2019-08-25 | Outpatient (CLI) | payer OTHER ==
[~2019-08-25] MED LIST changes: +KETOROLAC TROME10 MG PO; +TORADOL 10 MG T10 MG PO; +mega red PO
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
== END ==
LOC: M.PC 05:30
DX: M51.16 Intervertebral disc disorders with radiculopathy, lumbar region (principal); G89.29 Other chronic pain; R51 Headache; K21.9 Gastro-esophageal reflux disease without esophagitis; Z76.0 Encounter for issue of repeat prescription

== ENCOUNTER → 2019-10-27 | Outpatient (CLI) | payer OTHER ==
--- NOTE | ~2019-10-27 | PAINCON ---
[address] [address] PAIN MANAGEMENT CONSULTATION Name: PURNIMA QUEVEDO Room: [facility].#: [id number] Admission: 10/27/19 Attend Phys: Gill Medina MD Discharge: Date of : 72 Report #: [id number] THIS REPORT FOR: //name// CC: Rashid Medina DATE OF SERVICE: 10/27/2019 CHIEF COMPLAINT: Here for medication renewal. "Things are going reasonably well, but I have been having a headache, which has been problematic for about 4 days." HISTORY OF PRESENT ILLNESS: The patient is a 49-year-old gentleman who has been followed in the Pain Clinic because of chronic pain. He has had headache for a few days. He states that the pain is in the back of his head. He has not noticed any real change in his sensorium. He continues to have low back pain that radiates down into the low back area. It involves his legs, right and left. He has tried a number of medications and "nothing has helped it." At this point, he has returned today for renewal of his medications. Activity such as bending can be problematic. He finds that use of medications with heat and rest can be helpful for his back. He is taking the methadone and the oxycodone. Does not cause any problem with his sensorium. He is clear. His judgment is good. He would like to continue with these medications. He did try Medrol Dosepak in the past and found that was somewhat helpful. He has not used 1 for this headache pain. He rates his pain as 4/10 at this juncture. ALLERGIES: No known drug allergies. CURRENT MEDICATIONS: Amitriptyline has been used in the past, ibuprofen 800 mg, Skelaxin 800 mg t.i.d., methadone 10 mg t.i.d., oxycodone 10/325 one p.o. t.i.d., verapamil 120 mg. PAIN CLINIC ASSESSMENT/PQRS: 1. The patient has some arthritic changes in his neck. He is not being treated for rheumatoid arthritis. 2. Height 6 feet 4 inches, weight 262 pounds, BMI is 33. 3. Vital Signs: Blood pressure 151/94, heart rate 73, respiratory rate 16, room air saturation 96%, temperature 98. 4. Pain intensity 4/10. 5. Fall history. The patient has not fallen in the last 3 months. 6. Blood thinner. The patient is not on a blood thinning medication. 7. Hypertension. The patient is not being treated for hypertension. 8. Opioids greater than 6 weeks. The patient received medication from one source, Pain Clinic. 9. Risk assessment tool, [place] [address] PAIN MANAGEMENT CONSULTATION Name: PURNIMA QUEVEDO Room: [facility]#: [id number] Admission: 10/27/19 Attend Phys: Gill Medina MD Discharge: Date of : 72 Report #: [id number] 10. Functional assessment tool. 11. Recreational drug use. The patient denies. 12. Tobacco. The patient denies use of tobacco. 13. Alcohol. The patient denies use of alcoholic beverages except on rare occasion. PHYSICAL EXAMINATION: GENERAL: The patient is a well-developed, well-nourished white male, appears his stated age. He is alert and oriented x 3. His affect is appropriate. Speech is fluent. HEENT: Normocephalic, atraumatic. Extraocular eye muscles intact. Sclerae nonicteric. Mucous membrane is moist. The patient has some pain and discomfort in the occipital area midline on his neck and his head. It is not radiating anywhere, just has a kind of dull, deep discomfort. NECK: Without adenopathy or JVD. HEART: Regular rate. S1, S2. ABDOMEN: Nontender. Bowel sounds present. EXTREMITIES: Upper extremity muscle strength judged to be 5/5 for the major muscle groups in the upper extremity. The patient is without significant scoliosis, kyphosis or lordosis. The patient has pain in his left leg and pain that radiates down the lower portion of his back. He has had 2 back surgeries. Some weakness in his left leg. Some sensation in the L5-S1 dermatomal distribution. IMPRESSION: 1. History of cervical radiculopathy, stable at this juncture. 2. Headache, which is basically stable, has been waxing and waning over the last 4 days. 3. History of lumbar radiculopathy, status post 2 back surgeries. 4. L4/L5 diskectomy history. 3. History of chronic headaches. 4. Gastroesophageal reflux. RECOMMENDATIONS: We discussed treatment options with the patient. At this juncture, we will try a Medrol Dosepak; hopefully, he will find this beneficial. We will also have the patient try ketorolac tablets 10 mg. This medication sometimes is more helpful than some of the other nonsteroidal anti-inflammatory medications. Oftentimes patients get an injection in the Emergency Room with this medication, we will have him try it and hopefully this will help to quell the headache and discomfort he is experiencing. He can take this in conjunction with the Medrol Dosepak. He will call us if he has any concerns. A script for his oxycodone 10 mg one p.o. t.i.d., 90 tablets have been written. He will also continue with methadone 10 mg one tablet a.m., 1/2 tablet afternoon and 1 tablet at bedtime, a total of 90 tablets have been prescribed. The patient will call us if he has any concerns. If he has any problems with his sensorium thinking or any other concerns, he will [place] [address] PAIN MANAGEMENT CONSULTATION Name: PURNIMA QUEVEDO Room: [facility]#: [id number] Admission: 10/27/19 Attend Phys: Gill Medina MD Discharge: Date of : 72 Report #: [id number] We would like to thank you for letting us to participate in his care. We hope he continues to improve. By: [id number]. Gualberto Medina MD /nt
== END ==
LOC: M.PC 04:58
DX: M54.12 Radiculopathy, cervical region (principal); M54.16 Radiculopathy, lumbar region; R51 Headache; K21.9 Gastro-esophageal reflux disease without esophagitis

== ENCOUNTER → 2019-12-22 | Outpatient (CLI) | payer OTHER ==
--- NOTE | ~2019-12-22 | PAINCON ---
[address] [address] PAIN MANAGEMENT CONSULTATION Name: PURNIMA QUEVEDO Room: [facility]#: [id number] Admission: 12/22/19 Attend Phys: Gill Medina MD Discharge: Date of : 72 Report #: [id number] THIS REPORT FOR: //name// CC: RASHID Medina DATE OF SERVICE: 12/22/2019 PRIMARY CARE PHYSICIAN: Rashid Black MD CHIEF COMPLAINT: Some pain in the low back and neck. HISTORY: The patient is a 49-year-old gentleman who has been followed in the Pain Clinic. As you recall, he has a history of headache pain. He did try ketorolac tablets for pain. He did notice some improvement in the pain with that particular nonsteroidal anti-inflammatory medication. He has been to see a neurologist. Notes some shaking in his right hand. Notes that this is not problematic when he is moving his hand. 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 He sometimes notices that it can be shaky when he is holding a glass of liquid. He feels that the Percocet medication and methadone continue to be beneficial. He is able to think clearly. He is not having any problems with his clouding his sensorium. He would like to continue with his current medications. Rates his pain as a 5/10 today. Weather has been cold and he notes some increased discomfort with the cold. MEDICATIONS: 1. Ibuprofen 800 mg p.r.n. when he does not use ketorolac. He is aware not to use both nonsteroidal anti-inflammatory medications at the same time. 2. Skelaxin 800 mg t.i.d., methadone 10 mg t.i.d., oxycodone 10 mg 1 p.o. t.i.d., verapamil 120 mg. PAIN CLINIC ASSESSMENT AND PQRS: 1. 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 He is not being treated for rheumatoid arthritis. 2. Height 6 feet 4 inches, weight 265 pounds, BMI is 32.4. 3. Vital signs: Blood pressure 133/79, heart rate 76, respiratory rate 16, room air saturation is 95%, temperature 97.5. 4. Pain intensity 5/10. 5. Fall history: The patient has not fallen in the last 3 months. 6. Blood thinner. The patient is not on a blood thinning medication. 7. Hypertension. The patient is not being treated for hypertension. 8. Opioids greater than 6 weeks. The patient receives medication from one source the Pain Clinic. 9. Risk assessment tool, low for opioid use. 10. Functional assessment tool /70. [place] [address] PAIN MANAGEMENT CONSULTATION Name: PURNIMA QUEVEDO Room: [facility]#: [id number] Admission: 12/22/19 Attend Phys: Gill Medina MD Discharge: Date of : 72 Report #: [id number] 11. Recreational drug use: The patient denies. 12. Tobacco: The patient denies use of tobacco. 13. Alcohol: The patient denies use of alcoholic beverages except on rare occasion. PHYSICAL EXAMINATION: GENERAL: The patient is a well-developed, well-nourished white male. Appears his stated age. He is alert and oriented x 3. His affect is appropriate. Speech is fluent. HEENT: Normocephalic, atraumatic. Extraocular eye muscles intact. Sclerae nonicteric. Mucous membranes are moist. NECK: Without adenopathy or JVD. The patient does not have a headache today, but does have headaches, which starts in the posterior portion of his head and moves forward. NECK: Without adenopathy or JVD. HEART: Regular rate. S1, S2. ABDOMEN: Nontender. Bowel sounds present. EXTREMITIES: Upper extremity muscle strength judged to be 5/5 for the major muscle groups in the upper extremity. MUSCULOSKELETAL: The patient without significant scoliosis, kyphosis or lordosis. Looking at the patient's right hand to the evaluation, there was a slight amount of tremulousness, but nothing overwhelming. BACK: Status post 2 back surgeries. Has some weakness in his left leg. Some pain and discomfort in the L5-S1 dermatomal distribution. IMPRESSION: 1. History of cervical radiculopathy, stable at this juncture. 2. Headache, improves with use of the ketorolac 10 mg p.r.n. 3. History of 2 back surgeries. 4. L4-L5 diskectomy history. 5. History of chronic headaches. 6. Movement in the right hand. RECOMMENDATIONS: The patient states that he has seen a neurologist in regards to the movement in his right hand. They do not think that it is Parkinson's. They are doing some testing. The patient feels that his medications are helpful. They are not causing any problems with his sensorium. He is able to think clearly. States that the methadone medication along with Percocet are helpful with the back pain. He also continues with the ketorolac p.r.n. for headaches. A script for these medications have been rewritten. The patient will continue with Meloxicam 15 mg 1 p.o. daily. He will also continue with the muscle relaxant, Skelaxin 800 mg 1 p.o. t.i.d. to help with the muscle spasms. He will continue with methadone 1 tablet in the morning, 1/2 tablet in afternoon and 1 tablet at bedtime. The patient has had his oxy[place] [address] PAIN MANAGEMENT CONSULTATION Name: PURNIMA QUEVEDO Room: [facility]#: [id number] Admission: 12/22/19 Attend Phys: Gill Medina MD Discharge: Date of : 72 Report #: [id number] We would like to thank you for letting us participate in his care. We hope he continues to improve. By: [id number]. Gualberto Medina MD /nt
== END ==
LOC: M.PC 08:08
DX: M48.12 Ankylosing hyperostosis [Forestier], cervical region (principal); M47.816 Spondylosis without myelopathy or radiculopathy, lumbar region; R51 Headache; Z88.8 Allergy status to other drugs, medicaments and biological substances; Z79.899 Other long term (current) drug therapy

== ENCOUNTER → 2020-02-16 | Outpatient (CLI) | payer OTHER ==
[~2020-02-16] MED LIST changes: +NARCAN4 MG NARES; +REQUIP 0.25 M0.25 M1 PO
--- NOTE | 2020-02-17 09:01 | PAINCON ---
[address] [address] PAIN MANAGEMENT CONSULTATION Name: PURNIMA QUEVEDO Room: [facility].#: [id number] Admission: 02/16/20 Attend Phys: Gill Medina MD Discharge: Date of : 72 Report #: [id number] THIS REPORT FOR: //name// cc: Rashid Black MD, Michael S. MD ~ THIS REPORT FOR: //name// CC: Rashid Medina DATE OF SERVICE: 02/16/2020 PRIMARY CARE PHYSICIAN: Rashid Black MD CHIEF COMPLAINT: "I was told that I had Parkinson's disease." HISTORY OF PRESENT ILLNESS: The patient is a 49-year-old gentleman who has been followed in the Pain Clinic because of chronic pain. He has a history of headaches. He finds that the ketorolac tablets have been helpful. He has been seen by his physician. He had presented with some shaking in his right hand. After evaluation, it was felt that he maybe had some early signs of Parkinson's disease. He has used Requip and found that this has been somewhat beneficial. 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 He feels that his medications to help this pain are efficacious. He is able to think clearly. They are not clouding his judgment. He feels medications are helpful and would like to continue their use. He like the rest of us was concerned regarding COVID-19. He has been more active and finds that his pain in the back area has increased somewhat due to this increased activity. ALLERGIES: No known drug allergies. CURRENT MEDICATIONS: Ibuprofen 800 mg, Toradol 10 mg 20 tablets p.r.n. headache, meloxicam 15 mg daily, Skelaxin 800 mg t.i.d., methadone 10 mg t.i.d., Zofran 4 mg, Percocet 10 mg 1 p.o. t.i.d., verapamil 120 mg and 80 mg t.i.d., and MegaRed 1 tab. PAIN CLINIC ASSESSMENT/PQRS: 1. 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 He is not being treated for rheumatoid arthritis. 2. Height 6 feet 4 inches, weight 261 pounds, BMI is 31.9. 3. Vital signs: Blood pressure 126/74, heart rate 81, respiratory rate 16, room air saturation 97%, temperature 97.7. 4. Pain intensity 7/10. 5. Fall history: The patient has not fallen in the last 3 months. 6. Blood thinner. The patient is not on a blood[place] [address] PAIN MANAGEMENT CONSULTATION Name: PURNIMA QUEVEDO Room: [facility]#: [id number] Admission: 02/16/20 Attend Phys: Gill Medina MD Discharge: Date of : 72 Report #: [id number] 7. Hypertension. The patient is not being treated for hypertension. 8. Opioids greater than 6 weeks. The patient received medication from one source, the Pain Clinic. 9. Risk assessment tool: Low for opioid use. 10. Functional assessment tool: 47/70. 11. Recreational drug use: The patient denies. 12. Tobacco: The patient denies use of tobacco. 13. Alcohol. The patient denies use of alcoholic beverages except on rare occasion. PHYSICAL EXAMINATION: GENERAL: The patient is a well-developed, well-nourished white male. Appears his stated age. He is alert and oriented x 3. His affect is appropriate. Speech is fluent. HEENT: Normocephalic, atraumatic. Extraocular eye muscles intact. Sclerae nonicteric. Mucous membranes are moist. The patient is not complaining of headache today. NECK: Without adenopathy or JVD. HEART: Regular rate. ABDOMEN: Nontender. EXTREMITIES: Upper extremity muscle strength judged to be 5/5 for the major muscle groups in the upper extremity. The patient has less movement of his right hand with a 6-7 Hz movement consistent with Parkinson's disease. MUSCULOSKELETAL: The patient without significant scoliosis, kyphosis, or lordosis. IMPRESSION: 1. History of cervical radiculopathy, stable at this juncture. 2. Headache. Uses ketorolac 10 mg p.r.n., history of back surgeries x 2. 3. L5/L4 diskectomy history. 4. History of chronic headaches. 5. Tremulousness in his hand, which has been consistent with Parkinson's, has diminished. RECOMMENDATIONS: We discussed treatment options with the patient. At this juncture, we will continue with his medication. He feels his medications are helpful. He has noted improvement in his movement in the right hand since taking Requip. He feels that his sensorium is clear. He is able to think clearly in spite of his narcotic medications. We will continue with his medications. He is aware that opioid medications can cause some patients to develop addiction. He has not shown any signs of addiction. He will continue with his medications as prescribed. A script for meloxicam 15 mg 1 p.o. daily has been provided. The patient will also continue with the muscle relaxant, Skelaxin 800 mg. He will continue with ketorolac 10 mg up to t.i.d. to help with the headaches. The patient will also continue with methadone 10 mg 1 p.o. t.i.d. He will continue with Percocet 10 mg 1 p.o. [place].i.[place]. [place] [address] PAIN MANAGEMENT CONSULTATION Name: PURNIMA QUEVEDO Room: [facility]#: [id number] Admission: 02/16/20 Attend Phys: Gill Medina MD Discharge: Date of : 72 Report #: [id number] We would like to thank you for letting us participate in his care. We hope he continues to improve. <ELECTRONICALLY SIGNED> By: Gill Medina MD 02/17/20 0901 [id number]. Gualberto Medina MD /nt
== END ==
LOC: M.PC 02:44
DX: G20 Parkinson's disease (principal); R51 Headache; Z87.39 Personal history of other diseases of the musculoskeletal system and connective tissue

== ENCOUNTER → 2020-04-12 | Outpatient (CLI) | payer OTHER ==
--- NOTE | 2020-04-23 09:22 | PAINCON ---
[address] [address] PAIN MANAGEMENT CONSULTATION Name: PURNIMA QUEVEDO Room: [facility].#: [id number] Admission: 04/12/20 Attend Phys: Gill Medina MD Discharge: Date of : 72 Report #: [id number] THIS REPORT FOR: //name// cc: Rashid Black MD, Michael S. MD ~ THIS REPORT FOR: //name// CC: Rashid Medina DATE OF SERVICE: 04/12/2020 CHIEF COMPLAINT: Here for medication renewal. HISTORY: The patient is a 50-year-old gentleman who has been followed in the Pain Clinic. He has a history of headaches. He has noted some return of the pain from migraines. He thinks it might be link to the change in weather. It has been quite rainy. He is also having some discomfort in his low back area. He has noted some aching in his legs. He rates it overall his pain as a 6/10. 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 He feels the medications that he is taking are not clouding his memory or his judgment. He would like to continue with the medications. He notices about 60-70% improvement in pain control. Notes that the pain is worse with cold weather, walking and with certain activities. He is happy that his son who was involved in a motor vehicle accident some time ago has continued to recover. He has returned today with a desire to have his medications renewed. ALLERGIES: No known drug allergies. CURRENT MEDICATIONS: Ibuprofen 800 mg, tramadol 10 mg 20 tablets have been provided, he will take these p.r.n. migraine headaches, Meloxicam 15 mg daily, Skelaxin 800 mg t.i.d., methadone 10 mg t.i.d., Zofran 4 mg, Percocet 10 one p.o. t.i.d., verapamil 120 mg, MegaRed tabs. PAIN CLINIC ASSESSMENT/PQRS: 1. 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 He is not being treated for rheumatoid arthritis. 2. Height 6 feet 4 inches, weight 264 pounds, BMI 33. 3. Vital Signs: Blood pressure 144/73, heart rate 79, respiratory rate 16, room air saturation 97%, temperature 97.7. 4. Pain intensity 10. 5. Fall history: The patient has not fallen in the last 3 months. 6. Blood thinner. The patient is not on a blood thinning medication. 7. Hypertension. The patient is not being treated for hypertension. 8. Opioids greater than 6 weeks. The patient receives medications from the pain [place] [address] PAIN MANAGEMENT CONSULTATION Name: PURNIMA QUEVEDO Room: [facility]#: [id number] Admission: 04/12/20 Attend Phys: Gill Medina MD Discharge: Date of : 72 Report #: [id number] 9. Risk assessment tool, low for opioid use. 10. Functional assessment tool 47/. 11. Recreational drug use. The patient denies. 12. Tobacco: The patient denies. 13. Alcohol. The patient denies other than occasional rare use. PHYSICAL EXAMINATION: GENERAL: The patient is a well-developed, well-nourished white male. Appears his stated age. He is alert and oriented x 3. His affect is appropriate. Speech is fluent. HEENT: Normocephalic, atraumatic. Extraocular eye muscles intact. Sclerae nonicteric. Mucous membranes are moist. The patient has some slight tremor in his right hand. NECK: Without adenopathy or JVD. HEART: Regular rate. ABDOMEN: Nontender. EXTREMITIES: Upper extremity muscle strength judged to be 5/5 for the major muscle groups in the upper extremity. The patient has less movement in his right hand with about a 6-7 Hz consistent with Parkinson's. MUSCULOSKELETAL: The patient without significant scoliosis, kyphosis or lordosis. IMPRESSION: 1. History of cervical radiculopathy, stable at this juncture. 2. Headaches. The patient uses ketorolac 10 mg p.r.n. for migraine headaches. 3. History of back surgeries x 2. 4. L4-L5 diskectomy, history. 5. History of chronic headaches. 6. Tremulousness in his hands consistent with Parkinson's. RECOMMENDATIONS: We discussed treatment options with the patient. At this juncture, we will continue with his medications. He feels overall that things are helpful. He would like to continue with the medications, they are not causing any problems with his thinking. 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 He is aware of the COVID-19 problem. He is trying to stay away from infection. A script for medications of Toradol 10 mg has been provided. The patient has been given a script for meloxicam 15 mg. He will also continue with the Skelaxin 800 mg. The patient will continue with methadone 10 mg 1 p.o. t.i.d. has been given 3-month supply. He will also continue with oxycodone 10 mg 1 p.o. t.i.d. has a 3-month supply. The patient has been provided with naloxone. Should he have any problems with respiratory problems. <ELECTRONICALLY SIGNED> By: N. Gualberto Brown, MD 04/23/20 0922 [id number]. Gualberto Medina MD /[facility]
== END ==
LOC: M.PC 04:11
DX: G43.909 Migraine, unspecified, not intractable, without status migrainosus (principal); Z87.39 Personal history of other diseases of the musculoskeletal system and connective tissue; Z86.69 Personal history of other diseases of the nervous system and sense organs; Z98.890 Other specified postprocedural states; Z79.899 Other long term (current) drug therapy

== ENCOUNTER 2020-05-20 23:20 | Emergency (ER) | payer OTHER ==
[~2020-05-20] VITALS: Ht 195.6 cm; Wt 117.9 kg
[2020-05-20] MEDS ORDERED: AMANTADINE 100100 M1 PO (23:42)
[2020-05-21 01:25] LABS: ABSOLUTE BASOPHILS 0.1 thou/uL (0.0-0.2); ABSOLUTE EOSINOPHILS 0.1 thou/uL (0.0-0.7); ABSOLUTE LYMPHOCYTES 3.1 thou/uL (0.8-5.3); ABSOLUTE MONOCYTES 0.7 thou/uL (0.0-1.2); ABSOLUTE NEUTROPHILS 4.9 thou/uL (1.6-8.1); EOSINOPHILS 1.1 %; HEMATOCRIT 44.4 % (42.0-52.0); HEMOGLOBIN 15.5 gm/dL (14.0-18.0); LYMPHOCYTES 34.7 %; MCH 28.8 pg (26.0-34.0); MCHC 34.9 g/dL (28.0-37.0); MCV 82.5 fL (80.0-100.0); MONOCYTES 7.9 %; MPV 8.3 fl. (7.2-11.1); NUCLEATED RBCS 0 /100WBC; PLATELET COUNT* 250 thou/uL (150-400); POLYS 55.3 %; RBC 5.39 mil/uL (4.50-6.00); RDW-CV 13.2 % (10.5-14.5)
[2020-05-21 01:50] LABS: CALCIUM 8.7 mg/dL (8.5-10.1); POTASSIUM 3.5 mmol/L (3.5-5.1)
[2020-05-21 01:58] LABS: ALBUMIN 4.1 g/dL (3.4-5.0); TOTAL BILIRUBIN 0.4 mg/dL (<0.1-1.0); TOTAL PROTEIN 7.8 g/dL (6.4-8.2)
[2020-05-21] MEDS ORDERED: MEDROLDOSEPACK PO ×2 (03:21)
[2020-05-21 03:52] VITALS: BP 132/95
== END 2020-05-21 03:54 | disposition home or self-care (01) ==
LOC: M.ERS 23:20
PROVIDERS: Emergency Medicine
DX: M48.02 Spinal stenosis, cervical region (principal); K21.9 Gastro-esophageal reflux disease without esophagitis; G89.29 Other chronic pain

== ENCOUNTER → 2020-06-07 | Outpatient (CLI) | payer OTHER ==
[~2020-06-07] MED LIST changes: +AMANTADINE 100100 M1 PO; +ZANAFLEX2 M1 PO; +[UNRECOGNIZED DRUG - REMARK]
--- NOTE | 2020-06-13 08:36 | PAINCON ---
[address] [address] PAIN MANAGEMENT CONSULTATION Name: PURNIMA QUEVEDO Room: [facility].[place].#: [id number] Admission: 06/07/20 Attend Phys: Gill Medina MD Discharge: Date of : 72 Report #: [id number] THIS REPORT FOR: //name// cc: Rashid Black MD, Michael S. MD ~ THIS REPORT FOR: //name// CC: Rashid Medina DATE OF SERVICE: 06/07/2020 CHIEF COMPLAINT: "I went to the Emergency Room because the pain was so bad." HISTORY: The patient is a 50-year-old gentleman who has been followed in the pain clinic because of chronic pain involving the back and neck. He suffers from chronic headaches. He also has undergone back surgeries. He had an episode on about 05/20/2020 or 05/21/2020. Pain was quite problematic. He went to the Emergency Room. He had severe back spasms. He was having episode of global pain. This was one of the most severe spasms he has experienced in some time. He was provided a Medrol Dosepak. He also received some injections of fentanyl and remained in the Emergency Room for a short period of time. He was then released. He still has some pain and discomfort, which is still problematic at this point. 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 He feels that taking the physical agility test, which they take yearly would probably be difficult at this juncture. He feels that it might set off his pain syndrome and make it worse. He is taking ibuprofen. He feels that this medication is helpful with his pain. He does not have any GI problems. He has been taking a new medication for his Parkinson's symptoms. He has returned today for renewal of the medication. ALLERGIES: No known drug allergies. CURRENT MEDICATIONS: Amantadine 100 mg, ibuprofen 800 mg t.i.d., MegaRed tabs at bedtime, Skelaxin 800 mg t.i.d., methadone 10 mg 1 p.o. t.i.d. The patient has been provided a Narcan spray in the past, Zofran 4 mg, oxycodone 10/325 one p.o. t.i.d., Requip 0.25 mg, verapamil ER 120 mg. PAIN CLINIC ASSESSMENT AND PQRS: 1. 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 He is not being treated for rheumatoid arthritis. 2. Height 6 feet 4 inches, weight 263 pounds, BMI is 32. 3. Vital signs: Blood pressure 133/75, heart rate 91, respiratory rate 16, room air saturation 94%, temperature 97.6. Pain score 6-7/10. 4. Fall history: The patient has not fallen in the last 3 months. 5. Blood thinner. The patient is not on a [place] [address] PAIN MANAGEMENT CONSULTATION Name: PURNIMA QUEVEDO Room: [facility]#: [id number] Admission: 06/07/20 Attend Phys: Gill Medina MD Discharge: Date of : 72 Report #: [id number] 6. Hypertension. The patient is not being treated for hypertension. 7. Opioids greater than 6 weeks. The patient received medication from one source the pain clinic. 8. Risk assessment tool, low for opioid use. 9. Functional assessment tool . 10. Recreational drug use. The patient denies. 11. Tobacco: The patient denies. 12. Alcohol. The patient denies except on rare occasion. PHYSICAL EXAMINATION: GENERAL: The patient is a well-developed, well-nourished white male. Appears his stated age. He is alert and oriented x 3. His affect is appropriate. Speech is fluent. HEENT: Normocephalic, atraumatic. Extraocular eye muscles intact. Sclerae nonicteric. The patient is wearing a mask. HEART: Regular rate. ABDOMEN: Nontender. LUNGS: Clear. EXTREMITIES: Upper extremity muscle strength judged to be 5-/5 for the major muscle groups in the upper extremity. The patient has some increased complaint of pain and discomfort globally in his upper extremity as well as the back area since the muscle spasm event which sent him to the Emergency Room. He feels that the right hand has less movement since the use of his new Parkinson's medications. MUSCULOSKELETAL: The patient without significant scoliosis, kyphosis or lordosis. IMPRESSION: 1. History of cervical radicular pain, stable at this juncture. 2. Increased back pain with spasms, which caused him to go to the Emergency Room and was provided with a Medrol Dosepak. 3. Headaches history, uses ketorolac 10 mg for migraine headaches. 4. History of back surgeries x 2. 5. L4-L5 diskectomy history. 6. History of chronic headaches. 7. Parkinson's disease with a new medication. RECOMMENDATIONS: We discussed treatment options with the patient. At this juncture, we will continue with his medications. A script for his medications has been provided. He will continue with metaxalone 800 mg 3 times a day for muscle spasms. He will also continue with methadone 10 mg 1 p.o. t.i.d. He will continue with oxycodone 10 mg 1 p.o. t.i.d. The patient has been issued naloxone for use in an emergency should he have problems with respiratory depression. The patient has recently been given a Medrol Dosepak. At this juncture, we will continue with his medications. The patient has noted some increasing back pain and discomfort. 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 He feels that this would exacerbate his discomfort and make things worse. He would be willing to take it later on after his spasms have improved. We would like to thank you for letting us participate in his care. We hope he continues to improve. <ELECTRONICALLY SIGNED> By: Gill Medina MD 06/13/20 0836 [id number]. Gualberto Medina MD /nt
== END ==
LOC: M.PC 04:04
PROVIDERS: ATTEND Anesthesiology Pain Medicine
DX: M54.5 Low back pain (principal); M54.2 Cervicalgia; G20 Parkinson's disease; R51 Headache; Z86.69 Personal history of other diseases of the nervous system and sense organs; Z87.39 Personal history of other diseases of the musculoskeletal system and connective tissue; Z79.899 Other long term (current) drug therapy

== ENCOUNTER → 2020-08-02 | Outpatient (CLI) | payer OTHER ==
[~2020-08-02] MED LIST changes: +TIZANIDINE HCL 22 M1 PO
--- NOTE | 2020-08-16 08:38 | PAINCON ---
[address] [address] PAIN MANAGEMENT CONSULTATION Name: TIKIBYRONPURNIMA RASHID Room: [facility].#: [id number] Admission: 08/02/20 Attend Phys: Gill Medina MD Discharge: Date of : 72 Report #: [id number] THIS REPORT FOR: //name// cc: Rashid Black MD, Michael S. MD ~ THIS REPORT FOR: //name// CC: Rashid Medina DATE OF SERVICE: 08/02/2020 CHIEF COMPLAINT: Neck and arm pain. HISTORY: The patient is a 50-year-old gentleman who has been followed in the Pain Clinic because of chronic pain involving his back as well as pain in his neck. He suffers from chronic headaches. He has undergone back surgery. He returns today for renewal of his medications. He has noticed some increased pain and discomfort in the low back area. He notes that when he was bending over to tie his shoes, he noticed an increase in pain and discomfort. He notes that with walking and other activities, the pain level can increase. Feels that the oxycodone, methadone and tizanidine are helpful. He has returned today to have his medications renewed. 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 He notes that he is able to think clearly with his current medications. ALLERGIES: No known drug allergies. CURRENT MEDICATIONS: Amantadine 100 mg, ibuprofen 800 mg t.i.d., MegaRed tabs at bedtime, Skelaxin 800 mg t.i.d., methadone 10 mg t.i.d. The patient has been provided Narcan spray, Zofran 4 mg, oxycodone 10/325 one p.o. t.i.d., Requip 0.25 mg, and verapamil ER 120 mg. PAIN CLINIC ASSESSMENT AND PQRS: 1. 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 He is not being treated for rheumatoid arthritis. 2. Height 6 feet 4 inches, weight 260 pounds, BMI is 30. 3. Vital signs: Blood pressure 145/82, heart rate 88, respiratory rate 16, room air saturation 95. 4. Pain score 6/10. 5. Fall history: The patient has not fallen in the last 3 months. 6. Blood thinner. The patient is not on a blood thinning medication. 7. Hypertension. The patient is not being treated for hypertension. 8. Opioids greater than 6 weeks. The patient receives medication from one source the Pain Clinic. 9. Risk assessment tool, [place] [address] PAIN MANAGEMENT CONSULTATION Name: PURNIMA QUEVEDO Room: [facility].#: [id number] Admission: 08/02/20 Attend Phys: Gill Medina MD Discharge: Date of : 72 Report #: [id number] 10. Recreational drug. The patient denies use of recreational drugs. 11. Functional assessment tool 47/70. 12. Tobacco: The patient denies use of tobacco. 13. Alcohol. The patient denies use of alcoholic beverages. PHYSICAL EXAMINATION: GENERAL: The patient is a well-developed, well-nourished white male. He appears his stated age. He is alert and oriented x 3. His affect is appropriate. Speech is fluent. HEENT: Normocephalic, atraumatic. Extraocular eye muscles intact. Sclerae nonicteric. Mucous membranes are moist. The patient is wearing a facial covering. HEART: Regular rate. ABDOMEN: Nontender. LUNGS: Clear. EXTREMITIES: Upper extremity muscle strength judged to be 5-/5 for the major muscle groups in the upper extremities. The patient has some increased pain and discomfort in his upper extremities as well as in the low back area. Notes less movement in his right hand associated with the Parkinson's disease. MUSCULOSKELETAL: The patient without significant scoliosis, kyphosis or lordosis. IMPRESSION: 1. History of cervical radicular pain, stable at this juncture. 2. Increased back pain and spasm. 3. Headache history uses ketorolac 10 mg for migraine headaches p.r.n. 4. History of back surgeries x 2. 5. Lumbar L4-L5 disk history. 6. History of chronic headaches. 7. Parkinson's disease. RECOMMENDATIONS: We discussed treatment options with the patient. Risks and benefits of an epidural injection have been discussed. We will continue with a conservative approach. A script for her medications of oxycodone 10 mg 1 p.o. t.i.d. has been provided for the next month. The patient will continue with tizanidine muscle relaxant 1 p.o. b.i.d. The patient will be provided a Medrol Dosepak to take in the interim. He will also continue with Skelaxin 800 mg for muscle spasms. Continue with methadone 10 mg 1 p.o. t.i.d. A 2-month supply of medication has been provided. The patient will call us if he has any concerns. We would like to thank you for letting us participate in his care. We hope he continues to improve. <ELECTRONICALLY SIGNED> By: Gill Medina MD 08/16/20 0838 [id number]. MD jim Ruvalcaba
== END ==
LOC: M.PC 08:10
PROVIDERS: ATTEND Anesthesiology Pain Medicine
DX: M54.2 Cervicalgia (principal); M54.9 Dorsalgia, unspecified; R51 Headache; G20 Parkinson's disease; Z98.890 Other specified postprocedural states; Z87.39 Personal history of other diseases of the musculoskeletal system and connective tissue; Z79.899 Other long term (current) drug therapy

== ENCOUNTER → 2020-08-23 | Outpatient (CLI) | payer OTHER ==
--- NOTE | 2020-09-04 14:22 | PAINCON ---
[address] [address] PAIN MANAGEMENT CONSULTATION Name: SAEPURNIMA CHAVEZ Room: [facility].#: [id number] Admission: 08/23/20 Attend Phys: Gill Medina MD Discharge: Date of : 72 Report #: [id number] THIS REPORT FOR: //name// cc: Rashid Black MD, Michael S. MD ~ THIS REPORT FOR: //name// CC: Rashid Median DATE OF SERVICE: 08/23/2020 CHIEF COMPLAINT: Low back and leg pain. HISTORY: The patient is a 50-year-old gentleman who has been followed in the Pain Clinic. He suffers from chronic pain. He has chronic cervical pain. He also has pain in the low back with pain that is radiating down into his leg. This is the pain is most problematic today. He has returned to the Pain Clinic with the desire to undergo an epidural steroid injection to help quell the pain and discomfort he is having. He is having difficulty walking. He notes pain in the low back area. Rates it as a 7/10. He feels that his medications of methadone, oxycodone, and tizanidine, continue to be helpful. They are not impeding his ability to think clearly. He has returned today for an epidural steroid injection. ALLERGIES: No known drug allergies. CURRENT MEDICATIONS: Amantadine 100 mg, ibuprofen 800 mg t.i.d., MegaRed tabs at bedtime, Skelaxin 800 mg t.i.d., and methadone 10 mg t.i.d. The patient has been provided Narcan spray to take should the need arise. Zofran 4 mg, oxycodone 10/325 one p.o. t.i.d., Requip 0.25 mg, and verapamil ER 120 mg. PAIN CLINIC ASSESSMENT AND PQRS: 1. 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 He is not being treated for rheumatoid arthritis. 2. Height 6 feet 4 inches, weight 258 pounds, BMI is 31. 3. Vital signs: Blood pressure is 151/96, heart rate 80, respiratory rate 16, and room air saturation 97%. 4. Pain intensity is 7/10. 5. Fall history: The patient has not fallen in the last 3 months. 6. Blood thinner. The patient is not on a blood thinning medication. 7. Hypertension. The patient is not being treated for hypertension. 8. Opioids greater than 6 weeks. The patient receives medication from one source the Pain Clinic. 9. Risk assessment tool, low for opioid use. 10. Recreational [place] [address] PAIN MANAGEMENT CONSULTATION Name: PURNIMA QUEVEDO Room: [facility]#: [id number] Admission: 08/23/20 Attend Phys: Gill Medina MD Discharge: Date of : 72 Report #: [id number] 11. Functional assessment tool 47/70. 12. Tobacco: The patient denies use of tobacco. 13. Alcohol. The patient denies use of alcoholic beverages. PHYSICAL EXAMINATION: GENERAL: The patient is a well-developed, well-nourished white male. Appears his stated age. He is alert and oriented x 3. His affect is appropriate. Speech is fluent. HEENT: Normocephalic, atraumatic. Extraocular eye muscles intact. Sclerae nonicteric. The patient is wearing a facial covering. HEART: Regular rate. ABDOMEN: Nontender. LUNGS: Clear. EXTREMITIES: Upper extremity muscle strength judged to be 5-/5 for the major muscle groups in the upper extremity. The patient has some increased pain and discomfort in the lower portion of his back with pain that is radiating down in the L5-S1 dermatomal distribution. The patient without significant scoliosis, kyphosis or lordosis. She has a well-healed scar in the lumbar portion of his back. IMPRESSION: 1. History of lumbar radiculopathy. 2. History of cervical radicular pain, stable at this juncture. 3. History of back spasms. 4. History of migraine headaches helped with Ketorolac 10 mg p.r.n., history of back surgeries x 2. 5. Lumbar disk problems in the L4-L5. 6. History of chronic headaches. 7. Parkinson's disease. RECOMMENDATIONS: We discussed treatment options with the patient. Risks and benefits of an epidural steroid injection were discussed. Possible complications of the procedure were reviewed. They include but are not limited to infection, worsening of pain, no improvement in pain, nerve damage, bleeding. The patient is also aware that opioids can be less effective as time goes on. We explained to the patient that COVID-19 is pandemic. Steroids can decrease one's immune system. Should the patient become infected, he may have a more difficult time with infection. PROCEDURE NOTE: The patient was taken to the procedure area. He was then assisted in getting on the examination table. His back was sterilely prepped with a Betadine solution. A 0.25% bupivacaine was infiltrated. A 17-gauge Tuohy with loss of resistance technique was used to gain access to the epidural space. There was no CSF, heme or paresthesia at the L5-S1 area. A 17-gauge Tuohy with loss of resistance technique was then used to gain access. This area was anesthetized using 0.25% bupivacaine. The [place] [address] PAIN MANAGEMENT CONSULTATION Name: PURNIMA QUEVEOD Room: [facility].#: [id number] Admission: 08/23/20 Attend Phys: Gill Medina MD Discharge: Date of : 72 Report #: [id number] Clinic for an appropriate amount of time. He will follow up in the future as needed. We would like to thank you for letting us participate in his care. We hope he continues to improve. <ELECTRONICALLY SIGNED> By: Gill Medina MD 09/04/20 1422 [id number]. Gualberto Medina MD /nt
== END | disposition home or self-care (01) ==
LOC: M.PC 08:14
PROVIDERS: ATTEND Anesthesiology Pain Medicine
DX: M54.5 Low back pain (principal); M54.16 Radiculopathy, lumbar region; G43.909 Migraine, unspecified, not intractable, without status migrainosus; G20 Parkinson's disease; G89.29 Other chronic pain; Z79.899 Other long term (current) drug therapy; Z88.8 Allergy status to other drugs, medicaments and biological substances

== ENCOUNTER 2020-09-14 12:41 | Emergency (ER) | payer OTHER ==
[~2020-09-14] VITALS: Ht 193 cm; Wt 111.1 kg
[2020-09-14 14:41] VITALS: BP 145/70
== END 2020-09-14 14:42 | disposition home or self-care (01) ==
LOC: M.ERS 12:41
DX: G43.909 Migraine, unspecified, not intractable, without status migrainosus (principal); G89.29 Other chronic pain; Z79.899 Other long term (current) drug therapy

== ENCOUNTER 2020-10-04 18:19 | Emergency (ER) | payer OTHER ==
[~2020-10-04] VITALS: Ht 193 cm; Wt 108.9 kg
[~2020-10-04 18:19] MED LIST changes: +TIZANIDINE HCL2 M1 PO
[2020-10-04 19:14] VITALS: BP 145/71
[2020-10-05] MEDS ORDERED: VERAPAMIL (02:34)
== END 2020-10-04 19:15 | disposition home or self-care (01) ==
LOC: M.ERS 18:19
DX: M54.9 Dorsalgia, unspecified (principal); K21.9 Gastro-esophageal reflux disease without esophagitis

== ENCOUNTER 2020-10-05 02:27 | Emergency (ER) | payer OTHER ==
[~2020-10-05] VITALS: Ht 193 cm; Wt 111.1 kg
[2020-10-05] MEDS ORDERED: VERAPAMIL (02:34)
[2020-10-05 04:37] LABS: HEMATOCRIT 45.5 % (42.0-52.0); HEMOGLOBIN 15.7 gm/dL (14.0-18.0); MCH 28.7 pg (26.0-34.0); MCHC 34.5 g/dL (28.0-37.0); MCV 83.1 fL (80.0-100.0); MPV 7.9 fl. (7.2-11.1); NUCLEATED RBCS 0 /100WBC; PLATELET COUNT* 255 thou/uL (150-400); RBC 5.48 mil/uL (4.50-6.00); RDW-CV 13.6 % (10.5-14.5); WBC 8.9 thou/uL (4.0-11.0)
[2020-10-05 04:43] LABS: CALCIUM 9.4 mg/dL (8.5-10.1); POTASSIUM 3.9 mmol/L (3.5-5.1)
[2020-10-05 04:48] LABS: TOTAL BILIRUBIN 0.4 mg/dL (<0.1-1.0); TOTAL PROTEIN 7.9 g/dL (6.4-8.2)
[2020-10-05 04:56] LABS: URINE BILIRUBIN NEGATIVE (Negative); URINE BLOOD TRACE (Negative); URINE CLARITY CLEAR; URINE COLOR YELLOW; URINE GLUCOSE-RANDOM 1+ (Negative); URINE KETONES TRACE (Negative); URINE LEUKOCYTES-REFLEX NEGATIVE (Negative); URINE NITRITE-REFLEX NEGATIVE (Negative); URINE PROTEIN TRACE (Negative); URINE SPECIFIC GRAVITY >= 1.030 (1.005-1.030); URINE UROBILINOGEN 0.2 E.U./dl (0.2-1.0)
[2020-10-05 06:01] LABS: ABSOLUTE LYMPHOCYTES 1.2 thou/uL (0.8-5.3); ABSOLUTE NEUTROPHILS 7.7 thou/uL (1.6-8.1); PLATELET ESTIMATE ADEQUATE
[2020-10-05 06:10] LABS: ESR (SEDRATE) 11 mm/hr (0-15)
[2020-10-05 08:13] VITALS: BP 139/90
== END 2020-10-05 08:13 | disposition still patient (30) ==
LOC: M.ERS 02:27
PROVIDERS: Emergency Medicine
DX: M54.2 Cervicalgia (principal); Z20.828 Contact with and (suspected) exposure to other viral communicable diseases; M54.5 Low back pain; M54.6 Pain in thoracic spine

== ENCOUNTER → 2020-10-23 | Outpatient (CLI) | payer OTHER ==
[~2020-10-23] MED LIST changes: +DILAUDID 4 MG TA4 M1 PO; +PERCOCET 10-321 EAC1 PO; +VERAPAMIL
== END ==
LOC: M.PC 08:22
PROVIDERS: ATTEND Anesthesiology Pain Medicine
DX: M54.5 Low back pain (principal); M54.2 Cervicalgia

== ENCOUNTER → 2020-12-27 | Outpatient (CLI) | payer OTHER | LOC: M.PC 10:27 | PROVIDERS: ATTEND Anesthesiology Pain Medicine | DX: M54.5 Low back pain (principal); M54.2 Cervicalgia; G20 Parkinson's disease; Z87.39 Personal history of other diseases of the musculoskeletal system and connective tissue; Z88.8 Allergy status to other drugs, medicaments and biological substances; Z79.899 Other long term (current) drug therapy ==

== ENCOUNTER → 2021-01-15 | Outpatient (CLI) | payer OTHER | LOC: M.PC 07:34 | PROVIDERS: ATTEND Anesthesiology Pain Medicine | DX: M54.16 Radiculopathy, lumbar region (principal); M54.12 Radiculopathy, cervical region; R25.2 Cramp and spasm; G43.909 Migraine, unspecified, not intractable, without status migrainosus; G20 Parkinson's disease; R51.9 Headache, unspecified ==

== ENCOUNTER → 2021-01-24 | Outpatient (CLI) | payer OTHER | LOC: M.PC 08:40 | PROVIDERS: ATTEND Anesthesiology Pain Medicine | DX: G03.9 Meningitis, unspecified (principal); M54.5 Low back pain; M51.86 Other intervertebral disc disorders, lumbar region; G20 Parkinson's disease; Z87.39 Personal history of other diseases of the musculoskeletal system and connective tissue; Z86.69 Personal history of other diseases of the nervous system and sense organs ==

== ENCOUNTER → 2021-02-21 | Outpatient (CLI) | payer OTHER | LOC: M.PC 08:17 | PROVIDERS: ATTEND Anesthesiology Pain Medicine | DX: M51.86 Other intervertebral disc disorders, lumbar region (principal); G20 Parkinson's disease; G89.29 Other chronic pain; Z87.39 Personal history of other diseases of the musculoskeletal system and connective tissue; Z86.69 Personal history of other diseases of the nervous system and sense organs; Z88.8 Allergy status to other drugs, medicaments and biological substances; Z79.899 Other long term (current) drug therapy ==

== ENCOUNTER → 2021-04-18 | Outpatient (CLI) | payer OTHER ==
[~2021-04-18] MED LIST changes: +MIRAPEX0.25 MG PO
== END ==
LOC: M.PC 08:26
PROVIDERS: ATTEND Anesthesiology Pain Medicine
DX: M53.86 Other specified dorsopathies, lumbar region (principal); M54.16 Radiculopathy, lumbar region; M54.12 Radiculopathy, cervical region; G20 Parkinson's disease; R51.9 Headache, unspecified; G43.909 Migraine, unspecified, not intractable, without status migrainosus

== ENCOUNTER → 2021-07-11 | Outpatient (CLI) | payer OTHER | LOC: M.PC 08:17 | PROVIDERS: ATTEND Anesthesiology Pain Medicine | DX: M54.16 Radiculopathy, lumbar region (principal); M54.12 Radiculopathy, cervical region; G43.909 Migraine, unspecified, not intractable, without status migrainosus; G20 Parkinson's disease ==

== ENCOUNTER → 2021-10-03 | Outpatient (CLI) | payer OTHER ==
[~2021-10-03] MED LIST changes: +LYRICA 50 MG50 MG PO
== END ==
LOC: M.PC 08:00
PROVIDERS: ATTEND Anesthesiology Pain Medicine
DX: M54.16 Radiculopathy, lumbar region (principal); M54.12 Radiculopathy, cervical region; M25.511 Pain in right shoulder; G43.909 Migraine, unspecified, not intractable, without status migrainosus; G20 Parkinson's disease; Z79.899 Other long term (current) drug therapy

== ENCOUNTER → 2021-12-26 | Outpatient (CLI) | payer OTHER | LOC: M.PC 07:40 | PROVIDERS: ATTEND Anesthesiology Pain Medicine | DX: M54.16 Radiculopathy, lumbar region (principal); M54.12 Radiculopathy, cervical region; G43.909 Migraine, unspecified, not intractable, without status migrainosus; Z79.899 Other long term (current) drug therapy ==